=== PATIENT | male | born 1965 | race Caucasian/White ===

== ENCOUNTER 2017-02-15 05:36 | Inpatient (IN) ==
[2017-02-15] MEDS ORDERED: Naloxone 0.4 MG/ML INJ IVP PRN (11:40)
[2017-02-15] MEDS ORDERED: D5% in Water 1,000 ML IVC PRN (12:07)
[2017-02-15] MEDS ORDERED: Dextrose Gel 15 GM PO PRN ×2 (12:07)
[2017-02-15] MEDS ORDERED: *HR* Dextrose 50 % in Water (Syg) 50 ML SYRINGE IVP PRN (12:07)
[2017-02-15] MEDS: *HR* HYDROcodone/Acet 5/325 mg TABLET PO PRN ×3 (12:29→20:07)
[2017-02-15] MEDS: Furosemide 40 MG/4 ML VIAL IVP SCH (12:29)
[2017-02-15] MEDS: Insulin LISPRO 300 UNITS/3 ML VIAL SQ SCH ×3 (12:40→21:26)
--- NOTE | 2017-02-15 12:43 | Internal Med History&Physical ---
Date of Encounter: 02/15/17 Time of Encounter: 09:00 Assessment and Plan (1) Pleural effusion, left Current visit: No Status: Acute (2) Pneumonia Current visit: No Status: Acute Qualifiers: Pneumonia type: due to other aerobic Gram-negative bacteria Laterality: left Lung location: lower lobe of lung Qualified Code(s): J15.6 - Pneumonia due to other Gram-negative bacteria (3) COPD (chronic obstructive pulmonary disease) Current visit: Yes Status: Chronic Qualifiers: COPD type: chronic bronchitis Chronic bronchitis type: unspecified Qualified Code(s): J42 - Unspecified chronic bronchitis (4) Tobacco abuse Current visit: Yes Status: Acute (5) DM2 (diabetes mellitus, type 2) Current visit: Yes Status: Acute 51y/o male with hx of DM2, COPD, tobacco abuse who presents with large left pleural effusion - Will switch lasix to IV daily. Will consult pulm to evaluate for thoracentesis with analysis of fluid to rule out malignancy - Will start of Rocephin and zithromax emperically for possible masked infiltrates. - Will place on Duonebs and supplement oxygen. - counseled on tobacco cessation - Continue Accucheck with insulin coverage - Will check a Echocardiogram to evaluate cardiac structure and function. - DVT prophylaxis: SCD's - Home meds reviewed and restarted as deemed appropriate. Qualifiers: Diabetes mellitus complication status: without complication Diabetes mellitus meterman insulin use: without assisted use Qualified Code(s): E11.9 - Type 2 diabetes mellitus without complications Internal Medicine - H&P: HPI Chief complaint: Dyspnea Admitted From: Home Plans for Post Hospital Care: Home History of present illness: Mr. Paez is a 51 year old male with PMH of DM2, chronic COPD, tobacco abuse who presents as a transfer from [facility]. He reports that he has been having increased shortness of breath for the last 2 days and he would get very winded just by walking across the room. He denies fever, chills, chest pain or abdominal pain. At [facility], CXR was done which showed a Large left sided pleural effusion. He was subsequently transferred here for further management. Past Med Surg Social Fam HX - Past Medical History Medical history: COPD, diabetes, hypertension Psychiatric history: no psych history - Social History Smoking Status: Current every day smoker Packs per day: 1 ppd Smokeless Tobacco Status: No Alcohol use: none Drug use: none - Family History Mother Living Status: Age at : 42 Cause of : Cancer (Ovarian) Internal Medicine - H&P: Meds Albuterol Sulfate [Ventolin Hfa] 18 gm IH Q4HR PRN 12/25/16 [History] Aripiprazole [Abilify] 10 mg PO DAILY 12/25/16 [History] Celecoxib [Celebrex] 200 mg PO BID 12/25/16 [History] Escitalopram [Lexapro] 20 mg PO DAILY 12/25/16 [History] Furosemide [Lasix] 20 mg PO DAILY 12/25/16 [History] Gabapentin [Neurontin] 800 mg PO TID 12/25/16 [History] Glimepiride [Amaryl] 2 mg PO DAILY 12/25/16 [History] Lisinopril [Zestril] 20 mg PO DAILY 12/25/16 [History] Potassium Chloride [Klor-Con 10] 10 meq PO BID 12/25/16 [History] metFORMIN [Glucophage] 500 mg PO BIDWM 12/25/16 [History] 3 Allergy/AdvReac Type Severity Reaction Status Date / Time No Known Allergies Allergy Verified 02/15/17 03:53 All Systems PM: A 10-system review of systems was performed and is negative for pertinent findings except as documented above in the HPI. - Constitutional Constitutional: no chills, no fever(s), no night sweats - EENT Eyes: no change in vision, no discharge, no pain, no photophobia Ears: no ear discharge, no ear pain, no tinnitus Nose, mouth and throat: no dysphagia, no nasal discharge, no neck pain, no sore throat - Cardiovascular Cardiovascular ROS IM: no chest pain, no diaphoresis, no dyspnea, no lightheadedness, no palpitations, no syncope - Respiratory Respiratory: dyspnea, no cough, no wheezing, no excessive phlegm production - Gastrointestinal Gastrointestinal: no abdominal pain, no diarrhea, no hematemesis, no hematochezia, no melena, no nausea, no vomiting - Musculoskeletal Musculoskeletal ROS IM: no numbness, no tingling - Integumentary Integumentary IM: no rash, no unusual bruising - Neurological Neurological ROS: no confusion, no convulsions, no focal weakness, no numbness, no tingling, no tremor(s) - Hematologic/Lymphatic Hematologic/Lymphatic: no easy bruising - Constitutional Vitals: Temp Pulse Resp BP Pulse Ox 98.5 F 100 16 134/81 100 02/15/17 11:45 02/15/17 11:45 02/15/17 11:45 02/15/17 11:45 02/15/17 11:45 General appearance: Present: A&O X 3 - Head Head exam: Present: atraumatic, normocephalic - Eye Eye exam: Present: PERRL, conjuntiva pink, sclera anicteric Pupils: Present: PERRL - Neck Neck exam general surgery: Present: supple, trachea midline. Absent: lymphadenopathy - Respiratory Respiratory exam: Present: decreased breath sounds (left side greater than right.), rales, rhonchi. Absent: accessory muscle use, wheezes - Cardiovascular Cardiovascular exam: Present: RRR, +S1, +S2. Absent: diastolic murmur, gallop, rubs, systolic murmur - GI/Abdominal GI/Abdominal exam: Present: normal bowel sounds, soft, no peritoneal signs. Absent: distended, tenderness - Extremities Exam Extremities exam: Present: warm, radial pulses palpable and symmetrical. Absent : calf tenderness, cyanotic, pedal edema - Neurological Exam Neurological exam: Present: CN II-XII intact, oriented X3, no focal deficits. Absent: pronater drift, facial droop, speech deficit - Skin Skin exam: Present: dry, intact
--- NOTE | 2017-02-15 13:50 | Pulmonology Consult Note ---
<Twila Alvarado - Last Filed: 02/15/17 15:52> Date of Encounter: 02/15/17 Time of Encounter: 13:30 Assessment and Plan (1) Pleural effusion, left Current Visit: No Status: Acute - CXR found large left pleural effusion with adjacent atelectasis versus pneumonia. - Differential include parapneumonic (given current sepsis picture), malignancy (given significant smoking history), CHF. - Challenging to differentiate lung tissue from pleural effusion using bedside US. Will obtain CT chest without contrast as further work-up for now. - Echocardiogram ordered per primary team. - Possible US-guided thoracentesis tomorrow if CT chest confirms adequate pleural effusion. And plan to send pleural fluid for further studies including gram stain/culture, pH, cell count with diff, glucose. (2) Sepsis Current Visit: Yes Status: Acute - 3 SIRS criteria (tachycardia, tachypnea and leukocytosis) on initial presentation with lactic acid 1.6. - Patient had received 1L of NS in ED. - Blood cultures pending. - Will obtain sputum culture if possible. - Continue IV ceftriaxone and azithromycin. Qualifiers: Sepsis type: sepsis due to unspecified organism Qualified Code(s): A41.9 - Sepsis, unspecified organism (3) Pneumonia Current Visit: No Status: Acute - With noted leukocytosis (WBC 16.2) and CXR showed large left pleural effusion with adjacent atelectasis versus pneumonia. - Will obtain sputum culture if possible. - Continue IV ceftriaxone and azithromycin. Further de-escalation based on clinical picture and culture result. Qualifiers: Pneumonia type: due to other aerobic Gram-negative bacteria Laterality: left Lung location: lower lobe of lung Qualified Code(s): J15.6 - Pneumonia due to other Gram-negative bacteria (4) COPD (chronic obstructive pulmonary disease) Current Visit: Yes Status: Chronic - Continue bronchodilators. Qualifiers: COPD type: chronic bronchitis Chronic bronchitis type: unspecified Qualified Code(s): J42 - Unspecified chronic bronchitis (5) Tobacco abuse Current Visit: Yes Status: Acute - Smoking cessation counseling. - Start nicotine patch. History of Present Illness Consult date: 02/15/17 Requesting physician: Brain Guillory Reason for consult: pleural effusion (Left) Chief complaint: Shortness of breath History of present illness: Mr. Paez is a 51 year-old male with PMH of COPD (not on home oxygen), DM and HTN who presented to [place] ED with complaint of worsening difficulty breathing for 2 weeks. Patient was noted to have tachycardia, tachypnea and leukocytosis in ED with CXR showed large left pleural effusion with adjacent atelectasis versus pneumonia. Patient was admitted to [facility] on 02/15/17 for left pleural effusion and pneumonia and started on IV ceftriaxone and azithromycin. Pulmonolgy is consulted regarding further evaluation and management of left pleural effusion. Patient was seen and examined this afternoon. Patient reports worsening dyspnea for 2 weeks and it's aggravated by exertion and lying flat. Bronchodilator does not help. Patient also reports having constant sharp left-side back pain radiating from his kidney to shoulder. It's aggravated by cough or deep breath. Other associated symptoms include subjective fever, wheezes, productive cough with clear sputum and weight loss of 20 lb in past 2 weeks which patient believes it's secondary to poor appetite. Patient admits active smoking but reports decrease from 1 pack daily to 1/2 pack daily due to his illness. Patient denies known recent sick contact. Past Med Surg Social Fam HX - Past Medical History Medical history: COPD, diabetes, hypertension Psychiatric history: no psych history - Social History Smoking Status: Current every day smoker Packs per day: 1 ppd Smokeless Tobacco Status: No Alcohol use: none Drug use: none - Family History Mother Living Status: Age at : 42 Cause of : Cancer (Ovarian) Medications and Allergies Albuterol Sulfate [Ventolin Hfa] 18 gm IH Q4HR PRN 12/25/16 [History] Aripiprazole [Abilify] 10 mg PO DAILY 12/25/16 [History] Celecoxib [Celebrex] 200 mg PO BID 12/25/16 [History] Escitalopram [Lexapro] 20 mg PO DAILY 12/25/16 [History] Furosemide [Lasix] 20 mg PO DAILY 12/25/16 [History] Gabapentin [Neurontin] 800 mg PO TID 12/25/16 [History] Glimepiride [Amaryl] 2 mg PO DAILY 12/25/16 [History] Lisinopril [Zestril] 20 mg PO DAILY 12/25/16 [History] Potassium Chloride [Klor-Con 10] 10 meq PO BID 12/25/16 [History] metFORMIN [Glucophage] 500 mg PO BIDWM 12/25/16 [History] 3 Allergy/AdvReac Type Severity Reaction Status Date / Time No Known Allergies Allergy Verified 02/15/17 03:53 All Systems: A 10-system review of systems was performed and is negative for pertinent findings except as documented above in the HPI. - Constitutional Constitutional: fever(s), snoring, weight loss (20 lbs over past 2 weeks) - EENT Eyes: no loss of peripheral vision Ears: no decreased hearing Nose, mouth and throat: nasal discharge (occasional) - Cardiovascular Cardiovascular: lightheadedness, no chest pain, no syncope - Respiratory Respiratory: as per HPI, cough, dyspnea, dyspnea on exertion, wheezing, no hemoptysis - Gastrointestinal Gastrointestinal: nausea, no abdominal pain, no diarrhea, no hematochezia, no melena, no vomiting - Genitourinary Genitourinary: no difficulty urinating, no dysuria, no hematuria - Musculoskeletal Musculoskeletal: no arthralgias, no myalgias - Integumentary Integumentary: no erythema, no rash - Neurological Neurological: no focal weakness, no numbness, no tingling - Hematologic/Lymphatic Hematologic/Lymphatic: no easy bleeding, no easy bruising Physical Examination Vital Signs: Vital Signs, Last 4 Hours Temp Pulse Resp BP Pulse Ox 02/15/17 11:45 98.5 F 100 16 134/81 100 General appearance: no acute distress, alert Eyes: nonicteric ENT: oropharynx moist Mallampati (class): 4 Neck: supple Effort: normal Inspection: normal Auscultation: left: diminished breath sounds (Left base), bilateral: wheezes Cardiovascular: regular rate and rhythm Gastrointestinal: normoactive bowel sounds, soft, non-tender Integumentary: normal Extremities: no cyanosis, edema (Mild) Musculoskeletal: no deformities normal mental status, non-focal exam mood appropriate, affect normal Results - Laboratory Findings Abnormal lab findings: Abnormal lab results POC Glucose 287 (58-89) H 02/15/17 08:19 - Diagnostic Findings Chest x-ray: report reviewed, image reviewed - Clinical Findings Intake & Output: Intake & Output 02/14/17 02/15/17 02/15/17 23:59 07:59 15:59 Intake Total 400 / 400 Output Total 400 / 400 Balance 0 / 0 Weight 153 kg Consult Discharge Plan - Plan Referrals: Alondra Kign, ELECTRONIC COMMERCE SPECIALIST [Primary Care Provider] - <Brennon Allen - Last Filed: 02/15/17 17:25> Date of Encounter: 02/15/17 All Systems: A 10-system review of systems was performed and is negative for pertinent findings except as documented above in the HPI. Physical Examination Vital Signs: Vital Signs, Last 4 Hours Temp Pulse Resp BP Pulse Ox 02/15/17 16:08 16 93 02/15/17 15:56 98.5 F 107 15 128/82 95 Results - Laboratory Findings PT/INR, D-dimer PT 16.1 Seconds (9.4-12.1) H 02/15/17 14:06 Abnormal lab findings: Abnormal lab results PT 16.1 Seconds (9.4-12.1) H 02/15/17 14:06 POC Glucose 287 (58-89) H 02/15/17 08:19 - Clinical Findings Intake & Output: Intake & Output 02/15/17 02/15/17 02/15/17 07:59 15:59 23:59 Intake Total 1640 / 1640 Output Total 1525 / 1525 Balance 115 / 115 Weight 153 kg - Attending Attestation I examined this patient and my medical decision-making was reviewed with the Resident Physician. I agree with the documented findings, disposition and treatment plan as described except to the extent set forth below. Patient seen and examined. Labs, radiology, chart personally reviewed. 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 Patient has pleural effusion in the left side on the chest x-ray and did bedside ultrasound with difficulty mainly because of the body habitus, however I did not see a large effusion and since patient has risk factor mainly tobacco we will check CT chest to make sure there is no underlying pathology causing this pleural effusion. I also suspect patient has COPD from smoking and bronchodilators is reasonable and treating for pneumonia as well. Patient possibly has obstructive sleep apnea and he will need outpatient workup. Cardiovascular: 3 with echocardiogram. Thank you very much for consultation and we will have further recommendations based on the result of the CAT scan.
[2017-02-15] MEDS: cefTRIAXone 1,000 MG in Water for inj. (sterile) 10 ML IVP SCH (15:03)
[2017-02-15] MEDS: Gabapentin 400 MG CAPSULE PO SCH ×2 (15:03→20:07)
[2017-02-15] MEDS: Azithromycin 500 MG in D5% in Water 250 ML IVPB SCH (15:04)
[2017-02-15 15:19] LABS: INR 1.5; Prothrombin Time 16.1 Seconds (9.4-12.1)
[2017-02-15 15:22] LABS: Activated Partial Thrombo Time 27.4 Seconds (26.0-36.0)
[2017-02-15] MEDS: Ipratropium/Albuterol Neb 3 ML IH SCH ×3 (16:08→20:55)
[2017-02-15] MEDS: Nicotine 14 MG PATCH.TD24 TD SCH (16:48)
[2017-02-15] MEDS ORDERED: Perflutren Lipid Microsphere 1.3 ML in 0.9 % Sodium Chloride 8.7 ML IVP ONE (18:48)
[2017-02-15] MEDS: Ibuprofen 400 MG TABLET PO PRN (22:23)
[2017-02-16] MEDS: Ipratropium/Albuterol Neb 3 ML IH SCH ×7 (00:14→23:54)
[2017-02-16] MEDS: *HR* HYDROcodone/Acet 5/325 mg TABLET PO PRN ×5 (02:23→21:43)
[2017-02-16 04:08] LABS: Basophils # 0.1 K/mcL (0.0-0.2); Basophils % 0.4 %; Eosinophils # 0.1 K/mcL (0.0-0.6); Eosinophils % 0.7 %; Hematocrit 37.7 % (37.5-50.1); Hemoglobin 11.8 g/dL (12.9-16.9); Immature Granulocytes % 0.9 % (0-4); Lymphocytes # 1.2 K/mcL (0.6-4.6); Lymphocytes % 9.5 %; Mean Corpuscular HGB Conc 31.3 g/dL (31.6-35.5); Mean Corpuscular Hemoglobin 27.6 pg (28.0-33.3); Mean Corpuscular Volume 88.1 fL (83.0-100.0); Mean Platelet Volume 10.2 fL (9.4-12.4); Monocytes # 1.1 K/mcL (0.0-1.3); Monocytes % 8.2 %; Neutrophils # 10.3 K/mcL (1.6-8.9); Platelet Count 441 K/mcL (140-400); Red Blood Count 4.28 M/mcL (4.19-5.50); Red Cell Distribution Width 15.4 % (11.5-14.5); Segmented Neutrophils % 80.3 %
[2017-02-16 04:26] LABS: BUN/Creatinine Ratio 9 (6-26); Blood Urea Nitrogen 7 mg/dL (8-26); Calcium 8.6 mg/dL (8.6-10.8); Carbon Dioxide 31 mEq/L (19-29); Chloride 90 mEq/L (98-109); Glucose 308 mg/dL (70-99); Magnesium 1.6 mg/dL (1.6-2.6); Osmolality,Calculated 282 (280-300); Phosphorous 2.9 mg/dL (2.3-4.7); Potassium 3.2 mEq/L (3.5-4.5); Sodium 131 mEq/L (136-145); eGFR For African Americans > 60 (> 60); eGFR For Non-African Americans > 60 (> 60)
[2017-02-16 08:19] LABS: Alanine Aminotransferase 15 Units/L (0-55); Albumin/Globulin Ratio 0.3 (1.1-2.2); Alkaline Phosphatase 123 Units/L (38-126); Aspartate Amino Transferase 10 Units/L (5-34); Bilirubin,Direct 0.2 mg/dL (0.0-0.5); Bilirubin,Indirect 0.2 mg/dL (0.0-1.2); Bilirubin,Total 0.4 mg/dL (0.2-1.2); Globulin 5.1 g/dL (2.4-3.5); Total Protein 6.7 g/dL (6.0-8.3)
[2017-02-16 08:20] LABS: Albumin 1.6 g/dL (3.5-5.0)
[2017-02-16] MEDS ORDERED: Furosemide 20 MG TABLET PO SCH (09:00)
--- NOTE | 2017-02-16 09:08 | Pulmonology Progress Note ---
<Twila Alvarado - Last Filed: 02/16/17 10:01> Date of Encounter: 02/16/17 Time of Encounter: 09:00 Assessment and Plan (1) Pleural effusion, left Current Visit: No Status: Acute - CXR found large left pleural effusion with adjacent atelectasis versus pneumonia. - Differential include parapneumonic (given current sepsis picture), malignancy (given significant smoking history), CHF. - Challenging to differentiate lung tissue from pleural effusion using bedside US. Will obtain CT chest without contrast as further work-up for now. - CT chest found large posteriorly loculated left pleural effusion with associated dependent left lung consolidation, mostly of the left lower lobe, atelectasis and/or pneumonia. - Echocardiogram ordered per primary team. - IR consulted for thoracentesis/possible chest tube placement. Pleural fluid for further studies including gram stain/culture, pH, cell count with diff, glucose, total protein, LDH also ordered. (2) Sepsis Current Visit: Yes Status: Acute - 3 SIRS criteria (tachycardia, tachypnea and leukocytosis) on initial presentation with lactic acid 1.6. - Patient had received 1L of NS in ED. - Rapid influenza screen negative. - Blood cultures pending. - Sputum gram stain found few GPC and culture pending. - Continue IV ceftriaxone (since 02/15) and azithromycin (since 02/15). Further de-escalation based on clinical picture and culture result. Qualifiers: Sepsis type: sepsis due to unspecified organism Qualified Code(s): A41.9 - Sepsis, unspecified organism (3) Pneumonia Current Visit: No Status: Suspected - With noted leukocytosis (WBC 16.2) on admission and CXR showed large left pleural effusion with adjacent atelectasis versus pneumonia. - Sputum gram stain found few GPC and culture pending. - Continue IV ceftriaxone (since 02/15) and azithromycin (since 02/15). Further de-escalation based on clinical picture and culture result. Qualifiers: Pneumonia type: due to other aerobic Gram-negative bacteria Laterality: left Lung location: lower lobe of lung Qualified Code(s): J15.6 - Pneumonia due to other Gram-negative bacteria (4) COPD (chronic obstructive pulmonary disease) Current Visit: Yes Status: Chronic - Continue bronchodilators. Qualifiers: COPD type: chronic bronchitis Chronic bronchitis type: unspecified Qualified Code(s): J42 - Unspecified chronic bronchitis (5) Tobacco abuse Current Visit: Yes Status: Acute - Smoking cessation counseling. - Continue nicotine patch. Subjective Principal diagnosis: Left pleural effusion Interval history: Patient was seen and examined this morning. Patient reports breathing and cough better compared to yesterday. Patient still has some left-sided back pain but pain medication does help to alleviate the pain. Patient denies fever, chills, nausea, vomiting, chest pain, abdominal pain. Objective PUL Vital signs: Last Vital Signs Temp 97.5 F L 02/16/17 06:00 Pulse 98 02/16/17 06:00 Resp 18 02/16/17 07:50 BP 122/75 02/16/17 06:00 Pulse Ox 95 02/16/17 07:50 General appearance: no acute distress, alert Eyes: nonicteric ENT: oropharynx moist Mallampati (class): 4 Neck: supple Effort: normal Auscultation: left: diminished breath sounds, bilateral: wheezes Cardiovascular: regular rate and rhythm Gastrointestinal: normoactive bowel sounds, soft, non-tender Integumentary: normal Extremities: no cyanosis, no edema Musculoskeletal: no deformities normal mental status, non-focal exam mood appropriate, affect normal Results - Laboratory Findings CBC and BMP: 02/16/17 03:19 02/16/17 03:19 PT/INR, D-dimer PT 16.1 Seconds (9.4-12.1) H 02/15/17 14:06 Abnormal lab findings: Abnormal lab results WBC 12.9 K/mcL (4.3-11.1) H 02/16/17 03:19 Hgb 11.8 g/dL (12.9-16.9) L 02/16/17 03:19 MCH 27.6 pg (28.0-33.3) L 02/16/17 03:19 MCHC 31.3 g/dL (31.6-35.5) L 02/16/17 03:19 RDW 15.4 % (11.5-14.5) H 02/16/17 03:19 Plt Count 441 K/mcL (140-400) H 02/16/17 03:19 Neutrophils # 10.3 K/mcL (1.6-8.9) H 02/16/17 03:19 PT 16.1 Seconds (9.4-12.1) H 02/15/17 14:06 Sodium 131 mEq/L (136-145) L 02/16/17 03:19 Potassium 3.2 mEq/L (3.5-4.5) L 02/16/17 03:19 Chloride 90 mEq/L (98-109) L 02/16/17 03:19 Carbon Dioxide 31 mEq/L (19-29) H 02/16/17 03:19 BUN 7 mg/dL (8-26) L 02/16/17 03:19 Glucose 308 mg/dL (70-99) H 02/16/17 03:19 POC Glucose 287 (58-89) H 02/15/17 08:19 Albumin 1.6 g/dL (3.5-5.0) L 02/16/17 03:19 Globulin 5.1 g/dL (2.4-3.5) H 02/16/17 03:19 Albumin/Globulin Ratio 0.3 (1.1-2.2) L 02/16/17 03:19 - Microbiology Findings Microbiology Findings: Microbiology, Last 48 Hours 02/15/17 21:00 Sputum Culture - Preliminary Sputum - Diagnostic Findings CT scan - chest: report reviewed, image reviewed - Clinical Findings Intake & Output: Intake & Output 02/15/17 02/16/17 02/16/17 23:59 07:59 15:59 Intake Total 1740 / 1740 1500 / 1500 Output Total 500 / 500 1050 / 1050 Balance 1240 / 1240 450 / 450 Weight 153.2 kg Consult Discharge Plan - Plan Referrals: Alondra King, HUMAN RESOURCES BENEFITS SPECIALIST [Primary Care Provider] - <Brennon Allen - Last Filed: 02/16/17 16:21> Date of Encounter: 02/16/17 Objective PUL Vital signs: Last Vital Signs Temp 97.5 F L 02/16/17 15:54 Pulse 93 02/16/17 15:54 Resp 18 02/16/17 15:54 BP 107/68 02/16/17 15:54 Pulse Ox 97 02/16/17 15:54 Results - Laboratory Findings CBC and BMP: 02/16/17 03:19 02/16/17 03:19 PT/INR, D-dimer PT 16.1 Seconds (9.4-12.1) H 02/15/17 14:06 Abnormal lab findings: Abnormal lab results WBC 12.9 K/mcL (4.3-11.1) H 02/16/17 03:19 Hgb 11.8 g/dL (12.9-16.9) L 02/16/17 03:19 MCH 27.6 pg (28.0-33.3) L 02/16/17 03:19 MCHC 31.3 g/dL (31.6-35.5) L 02/16/17 03:19 RDW 15.4 % (11.5-14.5) H 02/16/17 03:19 Plt Count 441 K/mcL (140-400) H 02/16/17 03:19 Neutrophils # 10.3 K/mcL (1.6-8.9) H 02/16/17 03:19 PT 16.1 Seconds (9.4-12.1) H 02/15/17 14:06 Sodium 131 mEq/L (136-145) L 02/16/17 03:19 Potassium 3.2 mEq/L (3.5-4.5) L 02/16/17 03:19 Chloride 90 mEq/L (98-109) L 02/16/17 03:19 Carbon Dioxide 31 mEq/L (19-29) H 02/16/17 03:19 BUN 7 mg/dL (8-26) L 02/16/17 03:19 Glucose 308 mg/dL (70-99) H 02/16/17 03:19 POC Glucose 269 (58-89) H 02/16/17 06:34 Albumin 1.6 g/dL (3.5-5.0) L 02/16/17 03:19 Globulin 5.1 g/dL (2.4-3.5) H 02/16/17 03:19 Albumin/Globulin Ratio 0.3 (1.1-2.2) L 02/16/17 03:19 Pleural Appearance Cloudy (Clear) A 02/16/17 11:00 - Microbiology Findings Microbiology Findings: Microbiology, Last 48 Hours 02/16/17 11:00 Body Fluid Culture - Preliminary Pleural Fluid 02/15/17 21:00 Sputum Culture - Preliminary Sputum - Clinical Findings Intake & Output: Intake & Output 02/16/17 02/16/17 02/16/17 07:59 15:59 23:59 Intake Total 1500 / 1500 1580 / 1580 Output Total 1050 / 1050 2024 / 2024 Balance 450 / 450 -445 / -445 Weight 153.2 kg - Attending Attestation I examined this patient and my medical decision-making was reviewed with the Resident Physician. I agree with the documented findings, disposition and treatment plan as described except to the extent set forth below. Patient seen and examined. Labs, radiology, chart personally reviewed. 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 He should not is feeling better today however his CAT scan is concerning with loculated effusion and differential diagnosis would be infectious versus noninfectious etiologies for that reason discussed with the patient that I recommend draining and interventional radiologist was consulted for draining. Continue current antibiotics. Cardiovascular: stable
[2017-02-16] MEDS ORDERED: *HR* Midazolam HCl 2 MG/2 ML VIAL IVP ONE (09:45)
[2017-02-16] MEDS: *HR* Glimepiride 2 MG TABLET PO SCH (09:45)
[2017-02-16] MEDS: Lisinopril 20 MG TABLET PO SCH (09:45)
[2017-02-16] MEDS: Gabapentin 400 MG CAPSULE PO SCH ×3 (09:45→21:03)
[2017-02-16] MEDS: Nicotine 14 MG PATCH.TD24 TD SCH (09:46)
[2017-02-16] MEDS ORDERED: *HR* FentaNYL (PF) 100 MCG/2 ML VIAL IVP ONE (09:46)
[2017-02-16] MEDS: Furosemide 40 MG/4 ML VIAL IVP SCH (09:46)
[2017-02-16] MEDS: ARIPiprazole 10 MG TABLET PO SCH (09:46)
[2017-02-16] MEDS: cefTRIAXone 1,000 MG in Water for inj. (sterile) 10 ML IVP SCH (09:47)
[2017-02-16] MEDS: Insulin LISPRO 300 UNITS/3 ML VIAL SQ SCH ×4 (09:52→21:04)
[2017-02-16] MEDS: Ibuprofen 400 MG TABLET PO PRN (09:53)
[2017-02-16] MEDS ORDERED: 0.9 % Sodium Chloride 500 ML ONE (10:29)
--- NOTE | 2017-02-16 11:08 | IR Procedure Note ---
Date of procedure: 02/16/17 Consent Obtained: Written consent Timeout: Correct patient and procedure verified, Correct site verified, Time out performed, Skin prep completed Local anesthetic: Lidocaine 1% Indications: Left loculated pleft pleural effusion Procedure Performed: Left chest tube placement Results/Findings: 12F left chest tube, 1200ml purulent fluid removed Complications: None; Tolerated procedure well (Monitor on floor)
[2017-02-16] MEDS: Azithromycin 500 MG in D5% in Water 250 ML IVPB SCH (12:41)
[2017-02-16 12:44] LABS: Glucose,Pleural Fluid 32 mg/dL (No Ref Range); LDH,Pleural Fluid > 3325 Units/L (No Ref Range)
[2017-02-16] MEDS: Insulin DETEMIR 100 UNIT/ML X5UNITS SQ SCH (14:34)
[2017-02-16 15:13] LABS: Appearance of Pleural Fl Cloudy (Clear)
[2017-02-16] MEDS: *HR* Heparin 5,000 UNIT/ML VIAL SQ SCH (17:22)
--- NOTE | 2017-02-16 17:31 | Internal Med Progress Note ---
Date of Encounter: 02/16/17 Time of Encounter: 15:00 - Assessment and plan (1) Pleural effusion, left Current Visit: No Status: Acute (2) Pneumonia Current Visit: No Status: Suspected Qualifiers: Pneumonia type: due to other aerobic Gram-negative bacteria Laterality: left Lung location: lower lobe of lung Qualified Code(s): J15.6 - Pneumonia due to other Gram-negative bacteria (3) COPD (chronic obstructive pulmonary disease) Current Visit: Yes Status: Chronic Qualifiers: COPD type: chronic bronchitis Chronic bronchitis type: unspecified Qualified Code(s): J42 - Unspecified chronic bronchitis (4) Tobacco abuse Current Visit: Yes Status: Acute (5) DM2 (diabetes mellitus, type 2) Current Visit: Yes Status: Acute Assessment and plan: 51Y/O MALE WHO PRESENTED WITH LARGE LEFT PLEURAL EFFUSION. PT IS S/P LEFT SIDE CHEST TUBE PLACEMENT, REMAINS STABLE, FOLLOW RESULTS OF FLUID ANALYSIS, PULM FOLLOWING. WILL CONTINUE SUPPLEMENTAL OXYGEN NEEDED. CONTINUE ACCUCHECK WITH INSULIN COVERAGE. CONTINUE IV ABX FOR PNEUMONIA, REPLACE ELECTROLYTES. Qualifiers: Diabetes mellitus complication status: without complication Diabetes mellitus half-way insulin use: without director long term care use Qualified Code(s): E11.9 - Type 2 diabetes mellitus without complications - Subjective Interval history: SAYS BREATHING MUCH BETTER - Constitutional Vitals: Temp Pulse Resp BP Pulse Ox 97.5 F L 93 18 107/68 97 02/16/17 15:54 02/16/17 15:54 02/16/17 15:54 02/16/17 15:54 02/16/17 15:54 General appearance: Present: A&O X 3 - Head Head exam: Present: atraumatic, normocephalic - Eye Eye exam: Present: PERRL, conjuntiva pink, sclera anicteric Pupils: Present: PERRL - Neck Neck exam general surgery: Present: supple, trachea midline. Absent: lymphadenopathy - Respiratory Respiratory exam: Present: decreased breath sounds. Absent: accessory muscle use, rales, rhonchi, wheezes Additional comments: LEFT SIDE CHEST TUBE PRESENT. - Cardiovascular Cardiovascular exam: Present: RRR, +S1, +S2. Absent: diastolic murmur, gallop, rubs, systolic murmur - GI/Abdominal GI/Abdominal exam: Present: normal bowel sounds, soft, no peritoneal signs. Absent: distended, tenderness - Extremities Exam Extremities exam: Present: warm, radial pulses palpable and symmetrical. Absent : calf tenderness, cyanotic, pedal edema - Neurological Exam Neurological exam: Present: CN II-XII intact, oriented X3, no focal deficits. Absent: pronater drift, facial droop, speech deficit - Skin Skin exam: Present: dry, intact Internal Medicine: Result - Labs CBC & Chem 7: 02/16/17 03:19 02/16/17 03:19 Labs: Short CBC 02/16/17 Range/Units 03:19 WBC 12.9 H (4.3-11.1) K/mcL Hgb 11.8 L (12.9-16.9) g/dL Hct 37.7 (37.5-50.1) % Plt Count 441 H (140-400) K/mcL Neutrophils # 10.3 H (1.6-8.9) K/mcL BMP 02/16/17 03:19 Sodium 131 L Potassium 3.2 L Chloride 90 L Carbon Dioxide 31 H BUN 7 L Creatinine 0.80 Glucose 308 H Calcium 8.6 Liver Function 02/16/17 Range/Units 03:19 Total Bilirubin 0.4 (0.2-1.2) mg/dL Direct Bilirubin 0.2 (0.0-0.5) mg/dL AST 10 (5-34) Units/L ALT 15 (0-55) Units/L Alkaline Phosphatase 123 (38-126) Units/L Albumin 1.6 L (3.5-5.0) g/dL - ABG Interpretation ABG results: PT/INR, D-dimer PT 16.1 Seconds (9.4-12.1) H 02/15/17 14:06 - Impressions Impressions Echocardiogram 02/15/17 12:12 Impressions: LVEF 70%. Mild left ventricular diastolic dysfunction. Definity echo contrast was used. RV is not well evaluated. Mild mitral regurgitation. No pulmonary hypertension. Pleural effusion is not well visualized on this technically challenging study. Left Ventricular Wall Motion: Rest Echo Findings All wall segments showed normal motion. Findings: Study Quality * Technically challenging due to body habitus. Patient also supine for exam. ECG Findings * Sinus tachycardia. Left Ventricle * Mild left ventricular diastolic dysfunction. * LVEF 70%. * Definity echo contrast was used. * Suboptimal PLAX measurements - visually, LV size and wall thickness appear normal. Right Ventricle * RV is not well evaluated. Left Atrium * Normal left atrial size. Right Atrium * Right atrium is not well visualized. Aortic Valve * No aortic regurgitation. * No aortic stenosis. * Aortic valve not well visualized. Mitral Valve * Mitral valve not well visualized. * No mitral stenosis. * Mild mitral regurgitation. Tricuspid Valve * Tricuspid valve not well visualized. * Trace tricuspid regurgitation. * Estimated RA pressure is 3 mmHg. * Estimated RVSP is 24 mmHg. * No pulmonary hypertension. Pulmonic Valve * Pulmonic valve is not well visualized. * No pulmonic stenosis. * No pulmonic regurgitation. Pulmonary Artery * Pulmonary artery not well visualized. Aorta * Normally sized aortic root. * Ascending aorta is not well visualized. Pericardium * There is no pericardial effusion present. Interatrial Septum * Interatrial septum not well evaluated. IVC * The IVC is not dilated. Chest CT 02/15/17 15:51 IMPRESSION: Large posteriorly loculated left pleural effusion with associated dependent left lung consolidation, mostly of the left lower lobe, atelectasis and/or pneumonia. Follow-up to resolution is recommended. Left hilar adenopathy is likely reactive. Again, follow-up is recommended. Several scattered bilateral pleural and parenchymal nodular densities measuring up to 6 mm, probably postinflammatory. Comparison with prior studies would be helpful if available. Otherwise, see below follow-up. RECOMMENDATIONS: Fleischner Society guidelines for follow-up and management of incidentally detected pulmonary nodules: Single Solid Nodule: Multiple Solid Nodules: Nodule size equals 6-8 mm In a low-risk patient, CT at 3-6 months, then consider CT at 18-24 months. In a high-risk patient, CT at 3-6 months, then CT at 18-24 months. - Low risk patients include individuals with minimal or absent history of smoking and other known risk factors. - High risk patients include individuals with a history or smoking or known risk factors. Radiology 2017 http://pubs.rsna.org/doi/full/10.1148/radiol.[email or web address] D/ / Maylin Daley Cha, MD / Maylin Daley Cha, MD Interpreting Provider: Maylin Daley Cha, MD Needle Aspiration CT 02/16/17 00:00 IMPRESSION: 1. CT guided left chest tube placement as discussed above. D/ / Tylor Gaitan MD / Tylor Gaitan MD Interpreting Provider: Tylor Gaitan MD Consult Discharge Plan - Plan Referrals: Alondra King, WATER QUALITY SPECIALIST [Primary Care Provider] -
[2017-02-17] MEDS: *HR* HYDROcodone/Acet 5/325 mg TABLET PO PRN ×5 (03:46→21:11)
[2017-02-17] MEDS: Ipratropium/Albuterol Neb 3 ML IH SCH ×5 (04:04→20:55)
[2017-02-17] MEDS: *HR* Heparin 5,000 UNIT/ML VIAL SQ SCH ×2 (05:13→16:53)
[2017-02-17] MEDS: Insulin LISPRO 300 UNITS/3 ML VIAL SQ SCH ×4 (08:34→21:11)
[2017-02-17] MEDS: cefTRIAXone 1,000 MG in Water for inj. (sterile) 10 ML IVP SCH (08:35)
[2017-02-17] MEDS: Furosemide 40 MG/4 ML VIAL IVP SCH (08:37)
[2017-02-17] MEDS: Lisinopril 20 MG TABLET PO SCH (08:38)
[2017-02-17] MEDS: ARIPiprazole 10 MG TABLET PO SCH (08:38)
[2017-02-17] MEDS: Gabapentin 400 MG CAPSULE PO SCH ×3 (08:38→21:12)
[2017-02-17] MEDS: *HR* Glimepiride 2 MG TABLET PO SCH (08:38)
[2017-02-17] MEDS: Insulin DETEMIR 100 UNIT/ML X5UNITS SQ SCH (08:40)
[2017-02-17] MEDS: Nicotine 14 MG PATCH.TD24 TD SCH (08:40)
--- NOTE | 2017-02-17 09:56 | Pulmonology Progress Note ---
Date of Encounter: 02/17/17 Time of Encounter: 09:15 Assessment and Plan (1) Empyema of left pleural space Current Visit: Yes Status: Acute Based on the fluid description and patient has significant pus-looking fluid in the chamber as well as extremely elevated LDH by criteria this is an exudative pleural effusion/empyema and clinically patient is feeling better, however due to his age and loculated effusion consulted Dr. Muller from cardiothoracic for his opinion regarding decortication. Follow-up on the cultures from the pleural fluid. Continue current antibiotics. (2) COPD (chronic obstructive pulmonary disease) Current Visit: Yes Status: Chronic Continue bronchodilators. Qualifiers: COPD type: chronic bronchitis Chronic bronchitis type: unspecified Qualified Code(s): J42 - Unspecified chronic bronchitis Subjective Principal diagnosis: Left pleural effusion Interval history: Patient feels much better and he is able to take deep breath. Objective PUL Vital signs: Last Vital Signs Temp 97.8 F 02/17/17 07:25 Pulse 85 02/17/17 07:25 Resp 16 02/17/17 07:59 BP 97/62 02/17/17 07:25 Pulse Ox 98 02/17/17 07:59 General appearance: no acute distress Eyes: nonicteric ENT: oropharynx moist Neck: supple Effort: normal Auscultation: left: diminished breath sounds, other (Chest tube), right: clear Percussion: left: dull Cardiovascular: regular rate and rhythm Gastrointestinal: normoactive bowel sounds Extremities: no cyanosis normal mental status, non-focal exam mood appropriate Results - Laboratory Findings CBC and BMP: 02/16/17 03:19 02/16/17 03:19 PT/INR, D-dimer PT 16.1 Seconds (9.4-12.1) H 02/15/17 14:06 Abnormal lab findings: Abnormal lab results WBC 12.9 K/mcL (4.3-11.1) H 02/16/17 03:19 Hgb 11.8 g/dL (12.9-16.9) L 02/16/17 03:19 MCH 27.6 pg (28.0-33.3) L 02/16/17 03:19 MCHC 31.3 g/dL (31.6-35.5) L 02/16/17 03:19 RDW 15.4 % (11.5-14.5) H 02/16/17 03:19 Plt Count 441 K/mcL (140-400) H 02/16/17 03:19 Neutrophils # 10.3 K/mcL (1.6-8.9) H 02/16/17 03:19 PT 16.1 Seconds (9.4-12.1) H 02/15/17 14:06 Sodium 131 mEq/L (136-145) L 02/16/17 03:19 Potassium 3.2 mEq/L (3.5-4.5) L 02/16/17 03:19 Chloride 90 mEq/L (98-109) L 02/16/17 03:19 Carbon Dioxide 31 mEq/L (19-29) H 02/16/17 03:19 BUN 7 mg/dL (8-26) L 02/16/17 03:19 Glucose 308 mg/dL (70-99) H 02/16/17 03:19 POC Glucose 214 (58-89) H 02/16/17 19:29 Albumin 1.6 g/dL (3.5-5.0) L 02/16/17 03:19 Globulin 5.1 g/dL (2.4-3.5) H 02/16/17 03:19 Albumin/Globulin Ratio 0.3 (1.1-2.2) L 02/16/17 03:19 Pleural Appearance Cloudy (Clear) A 02/16/17 11:00 - Microbiology Findings Microbiology Findings: Microbiology, Last 48 Hours 02/15/17 21:00 Sputum Culture - Preliminary Sputum 02/16/17 11:00 Body Fluid Culture - Preliminary Pleural Fluid - Clinical Findings Intake & Output: Intake & Output 02/16/17 02/17/17 02/17/17 23:59 07:59 15:59 Intake Total 450 / 450 850 / 850 Output Total 815 / 815 760 / 760 Balance -365 / -365 90 / 90 Weight 153.4 kg Consult Discharge Plan - Plan Referrals: Alondra King, BUDGET ACCOUNTANT [Primary Care Provider] -
[2017-02-17 10:04] LABS: Alanine Aminotransferase 15 Units/L (0-55); Albumin/Globulin Ratio 0.3 (1.1-2.2); Alkaline Phosphatase 114 Units/L (38-126); Aspartate Amino Transferase 10 Units/L (5-34); BUN/Creatinine Ratio 10 (6-26); Bilirubin,Total 0.3 mg/dL (0.2-1.2); Blood Urea Nitrogen 7 mg/dL (8-26); Calcium 8.9 mg/dL (8.6-10.8); Carbon Dioxide 36 mEq/L (19-29); Chloride 86 mEq/L (98-109); Globulin 5.5 g/dL (2.4-3.5); Glucose 239 mg/dL (70-99); Osmolality,Calculated 276 (280-300); Potassium 3.3 mEq/L (3.5-4.5); Sodium 130 mEq/L (136-145); eGFR For African Americans > 60 (> 60); eGFR For Non-African Americans > 60 (> 60)
[2017-02-17 10:06] LABS: Albumin 1.5 g/dL (3.5-5.0)
[2017-02-17 10:55] LABS: Lactate Dehydrogenase 148 Units/L (159-327)
[2017-02-17] MEDS: Azithromycin 500 MG in D5% in Water 250 ML IVPB SCH (12:47)
[2017-02-17] MEDS ORDERED: Vancomycin 2,000 MG in D5% in Water 250 ML IVPB SCH (16:00)
--- NOTE | 2017-02-17 16:13 | Internal Med Progress Note ---
Date of Encounter: 02/17/17 Time of Encounter: 10:35 - Assessment and plan (1) Pneumonia Current Visit: Yes Status: Acute Assessment and plan: Patient with left-sided empyema likely related to underlying pneumonia. Pleural fluid culture growing staph aureus which is likely methicillin- resistant. Patient has now been placed on vancomycin. High risk for complications. Qualifiers: Pneumonia type: due to methicillin-resistant Staphylococcus aureus (MRSA) Laterality: left Lung location: lower lobe of lung Qualified Code(s): J15.212 - Pneumonia due to Methicillin resistant Staphylococcus aureus (2) Empyema of left pleural space Current Visit: Yes Status: Acute Assessment and plan: Fluid analysis suggests presence of exudative effusion concerning for empyema. Pleural fluid culture is growing staph aureus likely MRSA. Pulmonology following. Cardiothoracic surgery has been consulted for possible decortication. Patient has now been placed on vancomycin. Will stop ceftriaxone and azithromycin at this time. Will change Lasix to oral home dosage. (3) COPD (chronic obstructive pulmonary disease) Current Visit: Yes Status: Chronic Assessment and plan: Home bronchodilators. Not in acute exacerbation Qualifiers: COPD type: chronic bronchitis Chronic bronchitis type: unspecified Qualified Code(s): J42 - Unspecified chronic bronchitis (4) DM2 (diabetes mellitus, type 2) Current Visit: Yes Status: Chronic Assessment and plan: Uncontrolled blood sugars. Will add long-acting insulin in the morning. continue sliding scale coverage. Qualifiers: Diabetes mellitus complication status: without complication Diabetes mellitus skilled nursing insulin use: without skilled nursing use Qualified Code(s): E11.9 - Type 2 diabetes mellitus without complications (5) Sepsis Current Visit: Yes Status: Acute Qualifiers: Sepsis type: methicillin resistant Staphylococcus aureus Qualified Code(s) : A41.02 - Sepsis due to Methicillin resistant Staphylococcus aureus (6) Chronic congestive heart failure Current Visit: Yes Status: Chronic Assessment and plan: Will change Lasix back to oral dose at 20 mg per day as patient does not appear to be having acute congestive heart failure at this time Qualifiers: Congestive heart failure type: diastolic Qualified Code(s): I50.32 - Chronic diastolic (congestive) heart failure - Subjective Interval history: Patient is doing well overall. Does have some discomfort at site of chest tube insertion. Breathing is improving. Does have some cough. No fever or chills reported overnight. - Constitutional Vitals: Temp Pulse Resp BP Pulse Ox 97.8 F 85 16 97/62 92 02/17/17 07:25 02/17/17 07:25 02/17/17 15:38 02/17/17 07:25 02/17/17 15:38 General appearance: Present: cooperative, mild distress, A&O X 3, answers questions appropriately - Neck Neck exam general surgery: Present: supple, trachea midline. Absent: lymphadenopathy - Respiratory Respiratory exam: Present: prolonged expiratory phase, wheezes. Absent: accessory muscle use, rales, rhonchi Additional comments: Chest tube is in place on the left side - Cardiovascular Cardiovascular exam: Present: RRR, +S1, +S2. Absent: diastolic murmur, gallop, rubs, systolic murmur - Extremities Exam Extremities exam: Present: warm, radial pulses palpable and symmetrical. Absent : calf tenderness, cyanotic, pedal edema - Neurological Exam Neurological exam: Present: CN II-XII intact, oriented X3, no focal deficits. Absent: pronater drift, facial droop, speech deficit Internal Medicine: Result - Labs CBC & Chem 7: 02/16/17 03:19 02/17/17 09:36 Labs: BMP 02/17/17 09:36 Sodium 130 L Potassium 3.3 L Chloride 86 L Carbon Dioxide 36 H BUN 7 L Creatinine 0.73 Glucose 239 H Calcium 8.9 Liver Function 02/17/17 Range/Units 09:36 Total Bilirubin 0.3 (0.2-1.2) mg/dL AST 10 (5-34) Units/L ALT 15 (0-55) Units/L Alkaline Phosphatase 114 (38-126) Units/L Albumin 1.5 L (3.5-5.0) g/dL - ABG Interpretation ABG results: PT/INR, D-dimer PT 16.1 Seconds (9.4-12.1) H 02/15/17 14:06 Consult Discharge Plan - Plan Referrals: Alondra King, SAW CLEANER [Primary Care Provider] -
--- NOTE | 2017-02-17 16:26 | Cardiothoracic Consult Note ---
Date of Encounter: 02/17/17 Time of Encounter: 16:22 Assessment and Plan (1) Empyema of left pleural space Current Visit: Yes Status: Acute The patient is a 51-year-old type II diabetic, hypertensive man with COPD. Approximately 2 weeks ago he developed shortness of breath and dyspnea on exertion. This was followed by the rapid development of left-sided flank pain. He was evaluated at [place] emergency department and found to have a leukocytosis and a large left pleural effusion on chest x-ray. He was transferred to [facility] where he underwent thoracentesis. This removed approximately 1200 mL of white rhythm and arterial in the pulmonary culture results show a presumptive MRSA pleural empyema. The patient has had no follow-up radiological studies to evaluate the effectiveness of the thoracentesis. I will order a chest x-ray for tomorrow depending on the appearance, he may require a repeat chest CT. If the chest x-ray and/or chest CT show clearing of the empyema he may be treated with antibiotics. However, if the patient has residual loculated effusion, he will probably require a thoracotomy and decortication. The assessment and plan as outlined above was discussed with the patient and/or family members who expressed understanding and agreement. All questions were answered. - History of Present Illness Consult date: 02/17/17 Requesting physician: Brennon Allen Consult reason: Left pleural empyema Chief complaint: Shortness of breath, dyspnea on exertion, left sided flank pain History of present illness: Mr. Paez is a 51 year old type II diabetic, hypertensive man with COPD. He had done well until approximately 2 weeks ago when he began experiencing shortness of breath and dyspnea on exertion. These symptoms progressed and he then developed left sided flank pain. He denies any cough, hemoptysis, or syncope. He was evaluated to [facility] where he was found to have a leukocytosis and a chest x-ray showed a large left pleural effusion. He was transferred to [facility] for further care. The patient underwent a thoracentesis and interventional radiology with drainage of approximately 1200 mL of white purulent material. The material was sent for culture and was found to have a presumptive MRSA pleural empyema. The patient states that he feels dramatically better after the effusion was drained. He has no shortness of breath, dyspnea exertion, or left-sided flank pain. I have been asked to evaluate the patient for possible thoracotomy and decortication. Past Med Surg Social Fam HX - Past Medical History Medical history: COPD, diabetes, hypertension Psychiatric history: no psych history - Past Surgical History Surgical History: orthopedic, other (ORIF right tibial fracture) - Social History Smoking Status: Current every day smoker Packs per day: 1 ppd x 35 years Smokeless Tobacco Status: No Alcohol use: none Drug use: none Occupational status: previously employed Current living situation: Home - Independent Activity Level: Independent ambulation Recent Out of Country Travel Within the Last 8 Weeks: No Exposure or Possible Exposure to Illness During Travel: No - Family History Mother Living Status: Age at : 42 Cause of : Cancer (Ovarian) Medications and Allergies Albuterol Sulfate [Ventolin Hfa] 18 gm IH Q4HR PRN 12/25/16 [History] Aripiprazole [Abilify] 10 mg PO DAILY 12/25/16 [History] Celecoxib [Celebrex] 200 mg PO BID 12/25/16 [History] Escitalopram [Lexapro] 20 mg PO DAILY 12/25/16 [History] Furosemide [Lasix] 20 mg PO DAILY 12/25/16 [History] Gabapentin [Neurontin] 800 mg PO TID 12/25/16 [History] Glimepiride [Amaryl] 2 mg PO DAILY 12/25/16 [History] Lisinopril [Zestril] 20 mg PO DAILY 12/25/16 [History] Potassium Chloride [Klor-Con 10] 10 meq PO BID 12/25/16 [History] metFORMIN [Glucophage] 500 mg PO BIDWM 12/25/16 [History] 3 Allergy/AdvReac Type Severity Reaction Status Date / Time No Known Allergies Allergy Verified 02/15/17 03:53 All Systems Review: A 10-system review of systems was performed and is negative for pertinent findings except as documented above in the HPI. Physical Examination Vital Signs, Last 4 Hours Resp Pulse Ox 02/17/17 15:38 16 92 General: Conversant, No Apparent Distress HEENT: Atraumatic, Normocephaly, Trachea midline Neck: No JVD, Normal carotid pulses Cardiac: Reg Rate and Rhythm, Normal S1 and S2, No Murmur Lungs: Normal Breath Sounds (Right lung moseley), Decreased breath sounds (Left base) Neuro: Alert and responsive, No focal deficits noted, Motor nerves intact, Sensory nerves intact Vascular: Normal capillary refill Abdomen: Soft, Non-tender Skin: No rashes noted on visualized skin Musculoskeletal: No Chest Wall Tenderness Extremities: No Clubbing, No Cyanosis, No Edema Results 02/16/17 03:19 02/17/17 09:36 Lab Results, Last 24 hours 02/17/17 09:36 Sodium 130 L Potassium 3.3 L Chloride 86 L Carbon Dioxide 36 H BUN 7 L Creatinine 0.73 Glucose 239 H Calcium 8.9 Total Bilirubin 0.3 AST 10 ALT 15 Alkaline Phosphatase 114 Consult Discharge Plan - Plan Referrals: Alondra King, DIRECTOR EXPERIMENTAL MEDICINE [Primary Care Provider] -
[2017-02-17] MEDS: Vancomycin 2,000 MG in D5% in Water 500 ML IVPB SCH (17:59)
[2017-02-17] MEDS ORDERED: Insulin DETEMIR 100 UNIT/ML X5UNITS SQ SCH (21:00)
[2017-02-18] MEDS: Ipratropium/Albuterol Neb 3 ML IH SCH ×8 (00:21→23:02)
[2017-02-18] MEDS: *HR* HYDROcodone/Acet 5/325 mg TABLET PO PRN ×5 (00:57→21:40)
[2017-02-18 04:58] LABS: Basophils % 0.5 %; Eosinophils # 0.2 K/mcL (0.0-0.6); Eosinophils % 2.7 %; Hematocrit 37.7 % (37.5-50.1); Hemoglobin 11.7 g/dL (12.9-16.9); Lymphocytes # 1.1 K/mcL (0.6-4.6); Lymphocytes % 14.3 %; Mean Corpuscular Hemoglobin 27.6 pg (28.0-33.3); Mean Corpuscular Volume 88.9 fL (83.0-100.0); Mean Platelet Volume 10.2 fL (9.4-12.4); Monocytes # 0.5 K/mcL (0.0-1.3); Monocytes % 6.2 %; Platelet Count 453 K/mcL (140-400); Red Blood Count 4.24 M/mcL (4.19-5.50); Red Cell Distribution Width 15.1 % (11.5-14.5); Segmented Neutrophils % 75.3 %
[2017-02-18] MEDS: *HR* Heparin 5,000 UNIT/ML VIAL SQ SCH ×2 (04:58→16:39)
[2017-02-18] MEDS: Vancomycin 2,000 MG in D5% in Water 500 ML IVPB SCH (04:59)
[2017-02-18 05:04] LABS: BUN/Creatinine Ratio 14 (6-26); Blood Urea Nitrogen 10 mg/dL (8-26); Calcium 8.9 mg/dL (8.6-10.8); Carbon Dioxide 35 mEq/L (19-29); Chloride 88 mEq/L (98-109); Glucose 241 mg/dL (70-99); Osmolality,Calculated 281 (280-300); Potassium 3.5 mEq/L (3.5-4.5); Sodium 132 mEq/L (136-145); eGFR For African Americans > 60 (> 60); eGFR For Non-African Americans > 60 (> 60)
[2017-02-18] MEDS: Nicotine 14 MG PATCH.TD24 TD SCH (08:15)
[2017-02-18] MEDS: Furosemide 20 MG TABLET PO SCH (08:17)
[2017-02-18] MEDS: *HR* Glimepiride 2 MG TABLET PO SCH (08:17)
[2017-02-18] MEDS: ARIPiprazole 10 MG TABLET PO SCH (08:17)
[2017-02-18] MEDS: Gabapentin 400 MG CAPSULE PO SCH ×3 (08:17→21:40)
[2017-02-18] MEDS: Lisinopril 20 MG TABLET PO SCH (08:17)
--- NOTE | 2017-02-18 08:22 | Cardiothoracic Progress Note ---
Date of Encounter: 02/18/17 Time of Encounter: 08:20 - Assessment and plan (1) Empyema of left pleural space Current Visit: Yes Status: Acute The patient is breathing comfortably with supplemental oxygen. The chest x-ray shows persistent left lower lobe consolidation and a small left pleural effusion. A chest CT will be performed to better evaluate the residual effusion. If the patient has a significant amount of loculated fluid within the left pleural space, he will need a thoracotomy and decortication to help resolve the MRSA empyema. The assessment and plan as outlined above was discussed with the patient and/or family members who expressed understanding and agreement. All questions were answered. - Subjective Interval history: The patient is resting comfortably in his hospital bed. He has no respiratory complaints. Vital Signs, Last 4 Hours Resp Pulse Ox 02/18/17 04:26 16 99 Oxgyen Flow Rate Oxygen Flow Rate (LPM) 3 Clinical Data, last 8 Hours Output, Urine Amount 175 Output, Urine Amount 775 Weight 02/16/17 02/17/17 02/18/17 23:59 23:59 23:59 Weight 153.2 kg 153.4 kg 154.2 kg - Physical Examination General: Conversant, No Apparent Distress Neck: No JVD, Normal carotid pulses Cardiac: Reg Rate and Rhythm, Normal S1 and S2, No Murmur Incision: No signs of infection, Dry/intact dressing Chest tubes: Minimal drainage, Other (No air leak.) Lungs: Normal Breath Sounds, No Wheeze, Rales, Rhonchi Neuro: Alert and responsive, No focal deficits noted Vascular: Normal capillary refill Extremities: No Clubbing, No Cyanosis, No Edema - Labs 02/18/17 03:51 02/18/17 03:51 Lab Results, Last 24 hours 02/17/17 02/18/17 02/18/17 09:36 03:51 03:51 WBC 7.9 Hgb 11.7 L Hct 37.7 Plt Count 453 H Sodium 130 L 132 L Potassium 3.3 L 3.5 Chloride 86 L 88 L Carbon Dioxide 36 H 35 H BUN 7 L 10 Creatinine 0.73 0.72 Glucose 239 H 241 H Calcium 8.9 8.9 Total Bilirubin 0.3 AST 10 ALT 15 Alkaline Phosphatase 114 - Imaging Chest Xray: image reviewed (No pneumothorax. Left lower lobe consolidation. Small left pleural effusion.) Consult Discharge Plan - Plan Referrals: Alondra King, SURVEY SUPERVISOR [Primary Care Provider] -
[2017-02-18] MEDS ORDERED: Aminoglycoside Consult 1 EACH MC ONE (09:02)
--- NOTE | 2017-02-18 09:07 | Pulmonology Progress Note ---
Date of Encounter: 02/18/17 Time of Encounter: 08:55 Assessment and Plan (1) Empyema of left pleural space Current Visit: Yes Status: Acute This is suggestive of community-acquired MRSA ammonia and empyema. Discussed with Dr. Muller and primary team the patient will need a repeat CT chest and have further recommendation based on the result. Also to change antibiotics to Zyvox that might have a better penetration for treatment of his condition and that can be taken orally. Patient will need incentive spirometry and mobilization. (2) COPD (chronic obstructive pulmonary disease) Current Visit: Yes Status: Chronic Patient is on bronchodilators and he will need outpatient workup and follow-up. Qualifiers: COPD type: chronic bronchitis Chronic bronchitis type: unspecified Qualified Code(s): J42 - Unspecified chronic bronchitis (3) Suspected sleep apnea Current Visit: Yes Status: Suspected Patient will need outpatient work up. Subjective Principal diagnosis: Left pleural effusion Interval history: Patient continued to improve clinically and drainage from chest tube is less purulent. Objective PUL Vital signs: Last Vital Signs Temp 97.9 F 02/18/17 08:25 Pulse 87 02/18/17 08:25 Resp 18 02/18/17 08:25 BP 109/67 02/18/17 08:25 Pulse Ox 92 02/18/17 08:25 General appearance: no acute distress Eyes: nonicteric Mallampati (class): 4 Neck: supple Effort: normal Auscultation: left: diminished breath sounds (Chest tube in the left side), right: clear Percussion: left: dull, right: not dull Cardiovascular: regular rate and rhythm Gastrointestinal: normoactive bowel sounds Extremities: no cyanosis normal mental status, non-focal exam mood appropriate Results - Laboratory Findings CBC and BMP: 02/18/17 03:51 02/18/17 03:51 PT/INR, D-dimer PT 16.1 Seconds (9.4-12.1) H 02/15/17 14:06 Abnormal lab findings: Abnormal lab results Hgb 11.7 g/dL (12.9-16.9) L 02/18/17 03:51 MCH 27.6 pg (28.0-33.3) L 02/18/17 03:51 MCHC 31.0 g/dL (31.6-35.5) L 02/18/17 03:51 RDW 15.1 % (11.5-14.5) H 02/18/17 03:51 Plt Count 453 K/mcL (140-400) H 02/18/17 03:51 PT 16.1 Seconds (9.4-12.1) H 02/15/17 14:06 Sodium 132 mEq/L (136-145) L 02/18/17 03:51 Chloride 88 mEq/L (98-109) L 02/18/17 03:51 Carbon Dioxide 35 mEq/L (19-29) H 02/18/17 03:51 Glucose 241 mg/dL (70-99) H 02/18/17 03:51 POC Glucose 239 (58-89) H 02/17/17 19:45 Lactate Dehydrogenase 148 Units/L (159-327) L 02/17/17 09:36 Albumin 1.5 g/dL (3.5-5.0) L 02/17/17 09:36 Globulin 5.5 g/dL (2.4-3.5) H 02/17/17 09:36 Albumin/Globulin Ratio 0.3 (1.1-2.2) L 02/17/17 09:36 Pleural Appearance Cloudy (Clear) A 02/16/17 11:00 - Microbiology Findings Microbiology Findings: Microbiology, Last 48 Hours 02/16/17 11:00 Body Fluid Culture - Final Pleural Fluid Methicillin Resistant S.aureus 02/15/17 21:00 Sputum Culture - Final Sputum - Diagnostic Findings Chest x-ray: report reviewed, image reviewed - Clinical Findings Intake & Output: Intake & Output 02/17/17 02/18/17 02/18/17 23:59 07:59 15:59 Intake Total 600 / 600 120 / 120 Output Total 1350 / 1350 950 / 950 Balance -750 / -750 -830 / -830 Weight 154.2 kg Consult Discharge Plan - Plan Referrals: Alondra King, DUST BOX WORKER [Primary Care Provider] -
[2017-02-18] MEDS: Insulin DETEMIR 100 UNIT/ML X5UNITS SQ SCH ×2 (09:08→21:41)
[2017-02-18] MEDS: Insulin LISPRO 300 UNITS/3 ML VIAL SQ SCH ×4 (09:08→21:23)
--- NOTE | 2017-02-18 11:15 | Internal Med Progress Note ---
Date of Encounter: 02/18/17 Time of Encounter: 10:25 - Assessment and plan (1) Pneumonia Current Visit: Yes Status: Acute Assessment and plan: Discussed with pulmonology. Will transition patient to Zyvox, as it has better lung penetration. Patient is on venlafaxine so we will monitor him closely for serotonin syndrome. High risk for complications due to underlying empyema Qualifiers: Pneumonia type: due to methicillin-resistant Staphylococcus aureus (MRSA) Laterality: left Lung location: lower lobe of lung Qualified Code(s): J15.212 - Pneumonia due to Methicillin resistant Staphylococcus aureus (2) Empyema of left pleural space Current Visit: Yes Status: Acute Assessment and plan: Cardiothoracic surgery following. Chest x-ray done today shows partial clearing of the left lung opacity. There is residual consolidation in the left lower lobe. Will get CT scan to better evaluate this to see if the patient has a loculated effusion. If he does, he will need decortication. (3) COPD (chronic obstructive pulmonary disease) Current Visit: Yes Status: Chronic Qualifiers: COPD type: chronic bronchitis Chronic bronchitis type: unspecified Qualified Code(s): J42 - Unspecified chronic bronchitis (4) DM2 (diabetes mellitus, type 2) Current Visit: Yes Status: Chronic Assessment and plan: Blood sugars remain elevated. We will increase his long-acting insulin dosage. Qualifiers: Diabetes mellitus complication status: without complication Diabetes mellitus intermodal customer service insulin use: without intermodal customer service use Qualified Code(s): E11.9 - Type 2 diabetes mellitus without complications (5) Sepsis Current Visit: Yes Status: Resolved Assessment and plan: Sepsis improving. WBC count is normal now Qualifiers: Sepsis type: methicillin resistant Staphylococcus aureus Qualified Code(s) : A41.02 - Sepsis due to Methicillin resistant Staphylococcus aureus (6) Chronic congestive heart failure Current Visit: Yes Status: Chronic Assessment and plan: Continue oral Lasix. Qualifiers: Congestive heart failure type: diastolic Qualified Code(s): I50.32 - Chronic diastolic (congestive) heart failure - Subjective Interval history: Patient is lying in bed. Feels better. Denies any chest pain. Shortness of breath and cough are improving. No fever or chills reported overnight. - Constitutional Vitals: Temp Pulse Resp BP Pulse Ox 97.9 F 87 18 109/67 92 02/18/17 08:25 02/18/17 08:25 02/18/17 08:25 02/18/17 08:25 02/18/17 08:25 General appearance: Present: cooperative, A&O X 3, pleasant, answers questions appropriately - Respiratory Respiratory exam: Present: decreased breath sounds (Left base). Absent: accessory muscle use, rales, rhonchi, wheezes Additional comments: Chest tube in place and draining minimal amount purulent pleural fluid - Cardiovascular Cardiovascular exam: Present: RRR, +S1, +S2. Absent: diastolic murmur, gallop, rubs, systolic murmur - GI/Abdominal GI/Abdominal exam: Present: normal bowel sounds, soft, no peritoneal signs. Absent: distended, tenderness - Extremities Exam Extremities exam: Present: warm, radial pulses palpable and symmetrical. Absent : calf tenderness, cyanotic, pedal edema Internal Medicine: Result - Labs CBC & Chem 7: 02/18/17 03:51 02/18/17 03:51 Labs: Short CBC 02/18/17 Range/Units 03:51 WBC 7.9 (4.3-11.1) K/mcL Hgb 11.7 L (12.9-16.9) g/dL Hct 37.7 (37.5-50.1) % Plt Count 453 H (140-400) K/mcL Neutrophils # 6.0 (1.6-8.9) K/mcL BMP 02/18/17 03:51 Sodium 132 L Potassium 3.5 Chloride 88 L Carbon Dioxide 35 H BUN 10 Creatinine 0.72 Glucose 241 H Calcium 8.9 - ABG Interpretation ABG results: PT/INR, D-dimer PT 16.1 Seconds (9.4-12.1) H 02/15/17 14:06 - Impressions Impressions Chest X-Ray 02/18/17 06:00 IMPRESSION: Partial clearing of left lung opacities. Residual left lower lobe consolidation. D/ : / 02/18/2017 07:55:47 Deep Jo MD / nguyễnyer Interpreting Provider: Deep Jo MD Consult Discharge Plan - Plan Referrals: Alondra King, WAFER MOUNTER [Primary Care Provider] -
[2017-02-18] MEDS: Linezolid 600 MG TABLET PO SCH (21:41)
[2017-02-19] MEDS: Ibuprofen 400 MG TABLET PO PRN (00:56)
[2017-02-19] MEDS: Ipratropium/Albuterol Neb 3 ML IH SCH ×6 (03:44→23:41)
[2017-02-19] MEDS: *HR* Heparin 5,000 UNIT/ML VIAL SQ SCH ×2 (05:55→17:10)
[2017-02-19] MEDS: *HR* HYDROcodone/Acet 5/325 mg TABLET PO PRN ×3 (06:01→18:08)
--- NOTE | 2017-02-19 08:32 | Pulmonology Progress Note ---
Date of Encounter: 02/19/17 Time of Encounter: 08:30 Assessment and Plan (1) Empyema of left pleural space Current Visit: Yes Status: Acute Patient has the left sided chest tube it was draining till yesterday there is no much fluid in the pocket , spoke with no plan for decortication for now agrees the imaging and patient is feeling better . Will hold on to the chest tube for now will leave the decision to when to pull the chest tube out , To continue Zyvox (2) COPD (chronic obstructive pulmonary disease) Current Visit: Yes Status: Chronic To continue the current regimen of bronchodilators . Qualifiers: COPD type: chronic bronchitis Chronic bronchitis type: unspecified Qualified Code(s): J42 - Unspecified chronic bronchitis (3) Suspected sleep apnea Current Visit: Yes Status: Acute Will need outpatient work up Subjective Principal diagnosis: Left pleural effusion Interval history: Patient is doing well no constitutional symptoms , cough and sputum production is at baseline, denies any chest pain , repeat CT scan showed decreasing fluid in the loculated effusion which is the empyema collection . Objective PUL Vital signs: Last Vital Signs Temp 98.1 F 02/19/17 07:00 Pulse 79 02/19/17 07:00 Resp 18 02/19/17 07:53 BP 124/78 02/19/17 07:00 Pulse Ox 91 02/19/17 07:53 Auscultation: left: diminished breath sounds Results - Laboratory Findings CBC and BMP: 02/18/17 03:51 02/18/17 03:51 PT/INR, D-dimer PT 16.1 Seconds (9.4-12.1) H 02/15/17 14:06 Abnormal lab findings: Abnormal lab results Hgb 11.7 g/dL (12.9-16.9) L 02/18/17 03:51 MCH 27.6 pg (28.0-33.3) L 02/18/17 03:51 MCHC 31.0 g/dL (31.6-35.5) L 02/18/17 03:51 RDW 15.1 % (11.5-14.5) H 02/18/17 03:51 Plt Count 453 K/mcL (140-400) H 02/18/17 03:51 PT 16.1 Seconds (9.4-12.1) H 02/15/17 14:06 Sodium 132 mEq/L (136-145) L 02/18/17 03:51 Chloride 88 mEq/L (98-109) L 02/18/17 03:51 Carbon Dioxide 35 mEq/L (19-29) H 02/18/17 03:51 Glucose 241 mg/dL (70-99) H 02/18/17 03:51 POC Glucose 215 (58-89) H 02/18/17 11:20 Lactate Dehydrogenase 148 Units/L (159-327) L 02/17/17 09:36 Albumin 1.5 g/dL (3.5-5.0) L 02/17/17 09:36 Globulin 5.5 g/dL (2.4-3.5) H 02/17/17 09:36 Albumin/Globulin Ratio 0.3 (1.1-2.2) L 02/17/17 09:36 Pleural Appearance Cloudy (Clear) A 02/16/17 11:00 - Microbiology Findings Microbiology Findings: Microbiology, Last 48 Hours 02/16/17 11:00 Body Fluid Culture - Final Pleural Fluid Methicillin Resistant S.aureus 02/15/17 21:00 Sputum Culture - Final Sputum - Clinical Findings Intake & Output: Intake & Output 02/18/17 02/19/17 02/19/17 23:59 07:59 15:59 Intake Total 240 / 240 50 / 50 Output Total 1015 / 1015 750 / 750 Balance -775 / -775 -700 / -700 Weight 153 kg Consult Discharge Plan - Plan Referrals: Alondra King, CLINIQUE COUNTER MANAGER [Primary Care Provider] -
[2017-02-19] MEDS: Insulin DETEMIR 100 UNIT/ML X5UNITS SQ SCH ×2 (08:59→21:17)
[2017-02-19] MEDS: Linezolid 600 MG TABLET PO SCH ×2 (08:59→21:16)
[2017-02-19] MEDS: Furosemide 20 MG TABLET PO SCH (08:59)
[2017-02-19] MEDS: *HR* Glimepiride 2 MG TABLET PO SCH (08:59)
[2017-02-19] MEDS: Insulin LISPRO 300 UNITS/3 ML VIAL SQ SCH ×4 (08:59→21:17)
[2017-02-19] MEDS: Lisinopril 20 MG TABLET PO SCH (09:00)
[2017-02-19] MEDS: ARIPiprazole 10 MG TABLET PO SCH (09:00)
[2017-02-19] MEDS: Gabapentin 400 MG CAPSULE PO SCH ×3 (09:00→21:16)
[2017-02-19] MEDS: Nicotine 14 MG PATCH.TD24 TD SCH (09:02)
--- NOTE | 2017-02-19 14:46 | Cardiothoracic Progress Note ---
Date of Encounter: 02/19/17 Time of Encounter: 14:44 - Assessment and plan (1) Empyema of left pleural space Current Visit: Yes Status: Acute The assessment and plan as outlined above was discussed with the patient and/or family members who expressed understanding and agreement. All questions were answered. The patient is doing well. He is afebrile and his white blood cell count is normal. CT scan of the chest done yesterday is improved. Hopefully, we can get by with chest tube drainage and antibiotics and avoid a thoracotomy. - Subjective Interval history: The patient feels better and has no complaints. Vital Signs, Last 4 Hours Pulse Resp BP Pulse Ox 02/19/17 11:07 18 91 02/19/17 11:00 85 18 114/73 92 Oxgyen Flow Rate Oxygen Flow Rate (LPM) 2 Clinical Data, last 8 Hours Output, Chest Tube Drainage 0 Amount [Left Posterior Chest] Output, Urine Amount 650 Output, Urine Amount 900 Output, Urine Amount 375 Weight 02/17/17 02/18/17 02/19/17 23:59 23:59 23:59 Weight 153.4 kg 154.2 kg 153 kg Lungs are clear to percussion and auscultation. Heart is in a regular rate and rhythm. Chest tube drainage is minimal and there is no air leak. CT scan of the chest done yesterday is improved. - Labs 02/18/17 03:51 02/18/17 03:51 - VTE Documentation of Mechanical Device: Intermittent pneumatic compression device Consult Discharge Plan - Plan Referrals: Alondra King, GIRLS TENNIS COACH [Primary Care Provider] -
--- NOTE | 2017-02-19 15:35 | Internal Med Progress Note ---
Date of Encounter: 02/19/17 Time of Encounter: 10:40 - Assessment and plan (1) Pneumonia Current Visit: Yes Status: Acute Assessment and plan: Continue Zyvox.WBC count is normal. Clinically patient is improving. We will hold Lexapro for the duration of treatment with Zyvox due to increased risk of serotonin syndrome. Patient would likely need 7-21 days of treatment with Zyvox for his MRSA pneumonia with empyema. Qualifiers: Pneumonia type: due to methicillin-resistant Staphylococcus aureus (MRSA) Laterality: left Lung location: lower lobe of lung Qualified Code(s): J15.212 - Pneumonia due to Methicillin resistant Staphylococcus aureus (2) Empyema of left pleural space Current Visit: Yes Status: Acute Assessment and plan: Repeat CT scan of the chest shows decrease in size of effusion. Patient does have fluid in the left pleural fissure. Cardiothoracic surgery following. Recommend conservative management at this time. We will follow recommendations. Moderate risk for complications. (3) COPD (chronic obstructive pulmonary disease) Current Visit: Yes Status: Chronic Assessment and plan: Continue supportive care with bronchodilators as needed. Qualifiers: COPD type: chronic bronchitis Chronic bronchitis type: unspecified Qualified Code(s): J42 - Unspecified chronic bronchitis (4) DM2 (diabetes mellitus, type 2) Current Visit: Yes Status: Chronic Assessment and plan: Well-controlled after long-acting insulin dosage increased yesterday. Continue current insulin regimen Qualifiers: Diabetes mellitus complication status: without complication Diabetes mellitus chcf insulin use: without chcf use Qualified Code(s): E11.9 - Type 2 diabetes mellitus without complications (5) Sepsis Current Visit: Yes Status: Resolved Qualifiers: Sepsis type: methicillin resistant Staphylococcus aureus Qualified Code(s) : A41.02 - Sepsis due to Methicillin resistant Staphylococcus aureus (6) Chronic congestive heart failure Current Visit: Yes Status: Chronic Assessment and plan: Continue oral Lasix. Not in acute exacerbation at this time Qualifiers: Congestive heart failure type: diastolic Qualified Code(s): I50.32 - Chronic diastolic (congestive) heart failure (7) Morbid obesity with BMI of 40.0-44.9, adult Current Visit: Yes Status: Chronic - Subjective Interval history: 51-year-old male patient admitted here with left pleural effusion and pneumonia. Status post chest tube placement. Diagnosed with empyema due to MRSA. On oral Zyvox. Cardiothoracic surgery and pulmonology following. Patient is lying in bed. Feels comfortable. No pain or shortness of breath at this time. No fever or chills overnight. - Constitutional Vitals: Temp Pulse Resp BP Pulse Ox 98.1 F 85 18 114/73 91 02/19/17 07:00 02/19/17 11:00 02/19/17 11:07 02/19/17 11:00 02/19/17 11:07 General appearance: Present: cooperative, A&O X 3, morbidly obese, pleasant, answers questions appropriately - Neck Neck exam general surgery: Present: supple, trachea midline. Absent: lymphadenopathy - Respiratory Respiratory exam: Present: decreased breath sounds (left base). Absent: accessory muscle use, rales, rhonchi, wheezes - Cardiovascular Cardiovascular exam: Present: RRR, +S1, +S2. Absent: diastolic murmur, gallop, rubs, systolic murmur - GI/Abdominal GI/Abdominal exam: Present: normal bowel sounds, soft, no peritoneal signs. Absent: distended, tenderness - Extremities Exam Extremities exam: Present: warm, radial pulses palpable and symmetrical. Absent : calf tenderness, cyanotic, pedal edema Internal Medicine: Result - Labs CBC & Chem 7: 02/18/17 03:51 02/18/17 03:51 - ABG Interpretation ABG results: PT/INR, D-dimer PT 16.1 Seconds (9.4-12.1) H 02/15/17 14:06 - VTE Documentation of Mechanical Device: Intermittent pneumatic compression device Consult Discharge Plan - Plan Referrals: Alondra King, WATER RESTORATION TECHNICIAN [Primary Care Provider] -
[2017-02-20] MEDS: *HR* HYDROcodone/Acet 5/325 mg TABLET PO PRN ×6 (00:02→20:40)
[2017-02-20 03:44] LABS: Basophils % 0.3 %; Eosinophils # 0.2 K/mcL (0.0-0.6); Eosinophils % 2.2 %; Hematocrit 38.5 % (37.5-50.1); Hemoglobin 11.8 g/dL (12.9-16.9); Immature Granulocytes % 0.8 % (0-4); Lymphocytes # 1.3 K/mcL (0.6-4.6); Lymphocytes % 14.6 %; Mean Corpuscular HGB Conc 30.6 g/dL (31.6-35.5); Mean Corpuscular Hemoglobin 27.4 pg (28.0-33.3); Mean Corpuscular Volume 89.5 fL (83.0-100.0); Mean Platelet Volume 9.4 fL (9.4-12.4); Monocytes # 0.6 K/mcL (0.0-1.3); Monocytes % 6.4 %; Neutrophils # 6.6 K/mcL (1.6-8.9); Platelet Count 465 K/mcL (140-400); Red Cell Distribution Width 15.5 % (11.5-14.5); Segmented Neutrophils % 75.7 %
[2017-02-20 03:56] LABS: BUN/Creatinine Ratio 15 (6-26); Blood Urea Nitrogen 10 mg/dL (8-26); Calcium 8.9 mg/dL (8.6-10.8); Carbon Dioxide 35 mEq/L (19-29); Chloride 92 mEq/L (98-109); Glucose 140 mg/dL (70-99); Osmolality,Calculated 279 (280-300); Potassium 3.9 mEq/L (3.5-4.5); Sodium 134 mEq/L (136-145); eGFR For African Americans > 60 (> 60); eGFR For Non-African Americans > 60 (> 60)
[2017-02-20] MEDS: Ipratropium/Albuterol Neb 3 ML IH SCH ×6 (04:18→23:42)
[2017-02-20] MEDS: *HR* Heparin 5,000 UNIT/ML VIAL SQ SCH ×2 (06:12→16:21)
--- NOTE | 2017-02-20 07:36 | Cardiothoracic Progress Note ---
Date of Encounter: 02/20/17 Time of Encounter: 07:34 - Assessment and plan (1) Empyema of left pleural space Current Visit: Yes Status: Acute The patient is afebrile and his white blood cell count is normal. The chest tube was taken off suction. Hopefully, the chest tube and antibiotics are enough to resolve his pneumonia and empyema. He is aware that there is a small chance that he still may eventually require surgical therapy if things get worse , but he is opposed to surgery at this time. - Subjective Interval history: The patient has no complaints. Vital Signs, Last 4 Hours Temp Pulse Resp BP Pulse Ox 02/20/17 05:23 98 F 86 16 127/65 90 Oxgyen Flow Rate Oxygen Flow Rate (LPM) 4 Clinical Data, last 8 Hours Output, Chest Tube Drainage 0 Amount [Left Posterior Chest] Output, Chest Tube Drainage 0 Amount [Left Posterior Chest] Output, Urine Amount 0 Output, Urine Amount 250 Weight 02/18/17 02/19/17 02/20/17 23:59 23:59 23:59 Weight 154.2 kg 153 kg 154.5 kg Lungs are clear to percussion and auscultation. Heart is in a regular rate and rhythm. Chest tube drainage is minimal. There is no air leak. Chest x-ray is clear. - Labs 02/20/17 03:24 02/20/17 03:24 Lab Results, Last 24 hours 02/20/17 02/20/17 03:24 03:24 WBC 8.7 Hgb 11.8 L Hct 38.5 Plt Count 465 H Sodium 134 L Potassium 3.9 Chloride 92 L Carbon Dioxide 35 H BUN 10 Creatinine 0.67 L Glucose 140 H Calcium 8.9 - VTE Documentation of Mechanical Device: Intermittent pneumatic compression device Consult Discharge Plan - Plan Referrals: Alondra King, INDUSTRIAL MACHINE OPERATOR [Primary Care Provider] -
[2017-02-20] MEDS: Insulin LISPRO 300 UNITS/3 ML VIAL SQ SCH ×4 (08:08→20:41)
[2017-02-20] MEDS: Gabapentin 400 MG CAPSULE PO SCH ×3 (08:09→20:40)
[2017-02-20] MEDS: Linezolid 600 MG TABLET PO SCH ×2 (08:09→20:40)
[2017-02-20] MEDS: Lisinopril 20 MG TABLET PO SCH (08:09)
[2017-02-20] MEDS: ARIPiprazole 10 MG TABLET PO SCH (08:09)
[2017-02-20] MEDS: Furosemide 20 MG TABLET PO SCH (08:09)
[2017-02-20] MEDS: Nicotine 14 MG PATCH.TD24 TD SCH (08:09)
[2017-02-20] MEDS: Insulin DETEMIR 100 UNIT/ML X5UNITS SQ SCH ×2 (08:23→20:40)
--- NOTE | 2017-02-20 11:33 | Pulmonology Progress Note ---
Date of Encounter: 02/20/17 Time of Encounter: 10:00 Assessment and Plan (1) Empyema of left pleural space Current Visit: Yes Status: Acute Patient has the left sided chest tube it was draining till yesterday there is no much fluid in the pocket , spoke with no plan for decortication for now agrees the imaging and patient is feeling better .Today Chest tube is off suction .will leave the decision to when to pull the chest tube out , To continue Zyvox . (2) COPD (chronic obstructive pulmonary disease) Current Visit: Yes Status: Chronic To continue the current regimen of bronchodilators . Qualifiers: COPD type: chronic bronchitis Chronic bronchitis type: unspecified Qualified Code(s): J42 - Unspecified chronic bronchitis (3) Suspected sleep apnea Current Visit: Yes Status: Acute Will need outpatient work up Subjective Principal diagnosis: Left pleural effusion Interval history: Patient is doing well no constitutional symptoms , cough and sputum production is at baseline, denies any chest pain , Chest tube is off suction today. Objective PUL Vital signs: Last Vital Signs Temp 97.6 F 02/20/17 11:28 Pulse 81 02/20/17 11:28 Resp 14 02/20/17 11:28 BP 129/73 02/20/17 11:28 Pulse Ox 91 02/20/17 11:28 Auscultation: left: diminished breath sounds Results - Laboratory Findings CBC and BMP: 02/20/17 03:24 02/20/17 03:24 PT/INR, D-dimer PT 16.1 Seconds (9.4-12.1) H 02/15/17 14:06 Abnormal lab findings: Abnormal lab results Hgb 11.8 g/dL (12.9-16.9) L 02/20/17 03:24 MCH 27.4 pg (28.0-33.3) L 02/20/17 03:24 MCHC 30.6 g/dL (31.6-35.5) L 02/20/17 03:24 RDW 15.5 % (11.5-14.5) H 02/20/17 03:24 Plt Count 465 K/mcL (140-400) H 02/20/17 03:24 PT 16.1 Seconds (9.4-12.1) H 02/15/17 14:06 Sodium 134 mEq/L (136-145) L 02/20/17 03:24 Chloride 92 mEq/L (98-109) L 02/20/17 03:24 Carbon Dioxide 35 mEq/L (19-29) H 02/20/17 03:24 Creatinine 0.67 mg/dL (0.72-1.25) L 02/20/17 03:24 Glucose 140 mg/dL (70-99) H 02/20/17 03:24 POC Glucose 185 (58-89) H 02/19/17 19:11 Calculated Osmolality 279 (280-300) L 02/20/17 03:24 Lactate Dehydrogenase 148 Units/L (159-327) L 02/17/17 09:36 Albumin 1.5 g/dL (3.5-5.0) L 02/17/17 09:36 Globulin 5.5 g/dL (2.4-3.5) H 02/17/17 09:36 Albumin/Globulin Ratio 0.3 (1.1-2.2) L 02/17/17 09:36 Pleural Appearance Cloudy (Clear) A 02/16/17 11:00 - Microbiology Findings Microbiology Findings: Microbiology, Last 48 Hours 02/16/17 11:00 Body Fluid Culture - Final Pleural Fluid Methicillin Resistant S.aureus - Clinical Findings Intake & Output: Intake & Output 02/19/17 02/20/17 02/20/17 23:59 07:59 15:59 Intake Total 200 / 200 200 / 200 240 / 240 Output Total 400 / 400 250 / 250 800 / 800 Balance -200 / -200 -50 / -50 -560 / -560 Weight 154.5 kg - VTE Documentation of Mechanical Device: Intermittent pneumatic compression device Consult Discharge Plan - Plan Referrals: Alondra King, CLIENT SUPPORT ANALYST [Primary Care Provider] -
--- NOTE | 2017-02-20 18:10 | Internal Med Progress Note ---
Date of Encounter: 02/20/17 Time of Encounter: 11:00 - Assessment and plan (1) Empyema of left pleural space Current Visit: Yes Status: Acute Assessment and plan: Repeat CT scan of the chest shows decrease in size of effusion. Patient does have fluid in the left pleural fissure. Cardiothoracic surgery following with recommendations for continued chest tube but without suction. (2) Pneumonia Current Visit: Yes Status: Acute Assessment and plan: Continue Zyvox.WBC count is normal. Clinically patient is improving. We will hold Lexapro for the duration of treatment with Zyvox due to increased risk of serotonin syndrome. Patient would likely need 7-21 days of treatment with Zyvox for his MRSA pneumonia with empyema. Qualifiers: Pneumonia type: due to methicillin-resistant Staphylococcus aureus (MRSA) Laterality: left Lung location: lower lobe of lung Qualified Code(s): J15.212 - Pneumonia due to Methicillin resistant Staphylococcus aureus (3) DM2 (diabetes mellitus, type 2) Current Visit: Yes Status: Chronic Assessment and plan: Well-controlled after long-acting insulin. Continue current insulin regimen Qualifiers: Diabetes mellitus complication status: without complication Diabetes mellitus snf insulin use: without outside sales engineer use Qualified Code(s): E11.9 - Type 2 diabetes mellitus without complications (4) COPD (chronic obstructive pulmonary disease) Current Visit: Yes Status: Chronic Assessment and plan: Continue supportive care with bronchodilators as needed. Qualifiers: COPD type: chronic bronchitis Chronic bronchitis type: unspecified Qualified Code(s): J42 - Unspecified chronic bronchitis (5) Chronic congestive heart failure Current Visit: Yes Status: Chronic Assessment and plan: Stable; continue oral Lasix. Qualifiers: Congestive heart failure type: diastolic Qualified Code(s): I50.32 - Chronic diastolic (congestive) heart failure (6) Morbid obesity with BMI of 40.0-44.9, adult Current Visit: Yes Status: Chronic Assessment and plan: -Lifestyle modifications. - Subjective Interval history: Patient reports that breathing has improved Patient continues to have chest tube but now without suction - Constitutional Vitals: Temp Pulse Resp BP Pulse Ox 98.0 F 81 14 108/58 93 02/20/17 15:09 02/20/17 15:09 02/20/17 15:18 02/20/17 15:09 02/20/17 15:18 General appearance: Present: cooperative, A&O X 3, morbidly obese, pleasant, answers questions appropriately - Respiratory Respiratory exam: Present: CTAB. Absent: accessory muscle use, rales, rhonchi, wheezes - Cardiovascular Cardiovascular exam: Present: RRR, +S1, +S2. Absent: diastolic murmur, gallop, rubs, systolic murmur - GI/Abdominal GI/Abdominal exam: Present: normal bowel sounds, soft, no peritoneal signs. Absent: distended, tenderness Internal Medicine: Result - Labs CBC & Chem 7: 02/20/17 03:24 02/20/17 03:24 Labs: Short CBC 02/20/17 Range/Units 03:24 WBC 8.7 (4.3-11.1) K/mcL Hgb 11.8 L (12.9-16.9) g/dL Hct 38.5 (37.5-50.1) % Plt Count 465 H (140-400) K/mcL Neutrophils # 6.6 (1.6-8.9) K/mcL BMP 02/20/17 03:24 Sodium 134 L Potassium 3.9 Chloride 92 L Carbon Dioxide 35 H BUN 10 Creatinine 0.67 L Glucose 140 H Calcium 8.9 - ABG Interpretation ABG results: PT/INR, D-dimer PT 16.1 Seconds (9.4-12.1) H 02/15/17 14:06 - Impressions Impressions Chest X-Ray 02/20/17 00:01 IMPRESSION: 1. Left pleural catheter in stable position. No pneumothorax identified. 2. Diffuse airspace opacities, left greater than right. Left base consolidation with small effusion is also unchanged. D/ /20/2017 07:34:52 Bernadine Danielle MD / candy Interpreting Provider: Bernadine Danielle MD - VTE Documentation of Mechanical Device: Intermittent pneumatic compression device Consult Discharge Plan - Plan Referrals: Alondra King, GEORGES [Primary Care Provider] -
[2017-02-21] MEDS: *HR* HYDROcodone/Acet 5/325 mg TABLET PO PRN ×5 (00:43→21:39)
[2017-02-21] MEDS: Ipratropium/Albuterol Neb 3 ML IH SCH ×5 (04:05→21:32)
[2017-02-21] MEDS: *HR* Heparin 5,000 UNIT/ML VIAL SQ SCH ×2 (05:10→16:32)
[2017-02-21] MEDS: ARIPiprazole 10 MG TABLET PO SCH (08:06)
[2017-02-21] MEDS: Linezolid 600 MG TABLET PO SCH ×2 (08:06→21:32)
[2017-02-21] MEDS: Furosemide 20 MG TABLET PO SCH (08:07)
[2017-02-21] MEDS: Gabapentin 400 MG CAPSULE PO SCH ×3 (08:07→21:32)
[2017-02-21] MEDS: Nicotine 14 MG PATCH.TD24 TD SCH (08:07)
[2017-02-21] MEDS: Insulin LISPRO 300 UNITS/3 ML VIAL SQ SCH ×4 (08:07→21:31)
[2017-02-21] MEDS: Lisinopril 20 MG TABLET PO SCH (08:07)
[2017-02-21] MEDS: Insulin DETEMIR 100 UNIT/ML X5UNITS SQ SCH ×2 (08:12→21:32)
[2017-02-21 08:46] LABS: Basophils # 0.1 K/mcL (0.0-0.2); Basophils % 0.5 %; Eosinophils # 0.2 K/mcL (0.0-0.6); Eosinophils % 1.8 %; Hematocrit 38.4 % (37.5-50.1); Immature Granulocytes % 0.5 % (0-4); Lymphocytes # 1.4 K/mcL (0.6-4.6); Lymphocytes % 12.7 %; Mean Corpuscular HGB Conc 31.3 g/dL (31.6-35.5); Mean Corpuscular Hemoglobin 28.2 pg (28.0-33.3); Mean Corpuscular Volume 90.4 fL (83.0-100.0); Mean Platelet Volume 9.3 fL (9.4-12.4); Monocytes # 0.5 K/mcL (0.0-1.3); Monocytes % 4.7 %; Neutrophils # 8.8 K/mcL (1.6-8.9); Platelet Count 445 K/mcL (140-400); Red Blood Count 4.25 M/mcL (4.19-5.50); Red Cell Distribution Width 15.6 % (11.5-14.5); Segmented Neutrophils % 79.8 %
[2017-02-21 09:40] LABS: BUN/Creatinine Ratio 14 (6-26); Blood Urea Nitrogen 9 mg/dL (6-20); Calcium 8.5 mg/dL (8.6-10.3); Carbon Dioxide 33 mEq/L (23-29); Chloride 97 mEq/L (98-107); Glucose 135 mg/dL (70-105); Osmolality,Calculated 277 (280-300); Potassium 4.7 mEq/L (3.5-5.1); Sodium 133 mEq/L (136-145); eGFR For African Americans > 60 (> 60); eGFR For Non-African Americans > 60 (> 60)
--- NOTE | 2017-02-21 10:50 | Cardiothoracic Progress Note ---
Date of Encounter: 02/21/17 Time of Encounter: 10:48 - Assessment and plan (1) Empyema of left pleural space Current Visit: Yes Status: Acute I will plan to remove the chest tube tomorrow morning. He is markedly improved. There is still some small chance that he may require operative therapy, but the risk of this is decreasing. - Subjective Interval history: The patient feels much better and has no complaints. Vital Signs, Last 4 Hours Temp Pulse Resp BP Pulse Ox 02/21/17 08:07 16 136/89 92 02/21/17 07:45 97.6 F 81 16 136/89 93 Oxgyen Flow Rate Oxygen Flow Rate (LPM) 3 Clinical Data, last 8 Hours Output, Chest Tube Drainage 0 Amount [Left Posterior Chest] Output, Chest Tube Drainage 0 Amount [Left Posterior Chest] Output, Urine Amount 250 Output, Urine Amount 400 Output, Urine Amount 0 Weight 02/19/17 02/20/17 02/21/17 23:59 23:59 23:59 Weight 153 kg 154.6 kg 153.2 kg Lungs are clear to percussion and auscultation. Heart is in a regular rate and rhythm. Chest tube drainage is minimal and there is no air leak. Chest x-ray is stable. - Labs 02/21/17 08:37 02/21/17 08:37 Lab Results, Last 24 hours 02/21/17 02/21/17 08:37 08:37 WBC 11.0 Hgb 12.0 L Hct 38.4 Plt Count 445 H Sodium 133 L Potassium 4.7 Chloride 97 L Carbon Dioxide 33 H BUN 9 Creatinine 0.66 L Glucose 135 H Calcium 8.5 L - VTE Documentation of Mechanical Device: Intermittent pneumatic compression device Consult Discharge Plan - Plan Referrals: Alondra King, PROJ ENGINEER [Primary Care Provider] -
--- NOTE | 2017-02-21 11:40 | Pulmonology Progress Note ---
Date of Encounter: 02/21/17 Time of Encounter: 11:30 Assessment and Plan (1) Empyema of left pleural space Current Visit: Yes Status: Acute Patient has the left sided chest tube it was draining till yesterday there is no much fluid in the pocket , spoke with no plan for decortication for now agrees the imaging and patient is feeling better . Chest tube in place .will leave the decision to when to pull the chest tube out , To continue Zyvox for total of 3 weeks after the chest tube comes out . To check for platelet function after 2 weeks of therapy Will sign off call with questions . (2) COPD (chronic obstructive pulmonary disease) Current Visit: Yes Status: Chronic To continue the current regimen of bronchodilators . Qualifiers: COPD type: chronic bronchitis Chronic bronchitis type: unspecified Qualified Code(s): J42 - Unspecified chronic bronchitis (3) Suspected sleep apnea Current Visit: Yes Status: Acute Patient CPAP machine at home he is motivated to use it . Subjective Principal diagnosis: Left pleural effusion Interval history: Patient is doing well no constitutional symptoms , cough and sputum production is at baseline, denies any chest pain , Chest tube still in place Objective PUL Vital signs: Last Vital Signs Temp 97.8 F 02/21/17 11:25 Pulse 84 02/21/17 11:25 Resp 18 02/21/17 11:25 BP 105/66 02/21/17 11:25 Pulse Ox 93 02/21/17 11:25 Auscultation: left: diminished breath sounds Results - Laboratory Findings CBC and BMP: 02/21/17 08:37 02/21/17 08:37 PT/INR, D-dimer PT 16.1 Seconds (9.4-12.1) H 02/15/17 14:06 Abnormal lab findings: Abnormal lab results Hgb 12.0 g/dL (12.9-16.9) L 02/21/17 08:37 MCHC 31.3 g/dL (31.6-35.5) L 02/21/17 08:37 RDW 15.6 % (11.5-14.5) H 02/21/17 08:37 Plt Count 445 K/mcL (140-400) H 02/21/17 08:37 MPV 9.3 fL (9.4-12.4) L 02/21/17 08:37 PT 16.1 Seconds (9.4-12.1) H 02/15/17 14:06 Sodium 133 mEq/L (136-145) L 02/21/17 08:37 Chloride 97 mEq/L (98-107) L 02/21/17 08:37 Carbon Dioxide 33 mEq/L (23-29) H 02/21/17 08:37 Creatinine 0.66 mg/dL (0.70-1.30) L 02/21/17 08:37 Glucose 135 mg/dL (70-105) H 02/21/17 08:37 POC Glucose 213 (58-89) H 02/20/17 19:32 Calculated Osmolality 277 (280-300) L 02/21/17 08:37 Calcium 8.5 mg/dL (8.6-10.3) L 02/21/17 08:37 Lactate Dehydrogenase 148 Units/L (159-327) L 02/17/17 09:36 Albumin 1.5 g/dL (3.5-5.0) L 02/17/17 09:36 Globulin 5.5 g/dL (2.4-3.5) H 02/17/17 09:36 Albumin/Globulin Ratio 0.3 (1.1-2.2) L 02/17/17 09:36 Pleural Appearance Cloudy (Clear) A 02/16/17 11:00 - Clinical Findings Intake & Output: Intake & Output 02/20/17 02/21/17 02/21/17 23:59 07:59 15:59 Intake Total 1140 / 1140 800 / 800 360 / 360 Output Total 1225 / 1225 700 / 700 250 / 250 Balance -85 / -85 100 / 100 110 / 110 Weight 153.2 kg - VTE Documentation of Mechanical Device: Intermittent pneumatic compression device Consult Discharge Plan - Plan Referrals: Alondra King, TECH INTERN [Primary Care Provider] -
--- NOTE | 2017-02-21 18:26 | Internal Med Progress Note ---
Date of Encounter: 02/21/17 Time of Encounter: 11:00 - Assessment and plan (1) Empyema of left pleural space Current Visit: Yes Status: Acute Assessment and plan: Repeat CT scan of the chest shows decrease in size of effusion. Patient does have fluid in the left pleural fissure. Cardiothoracic surgery following with recommendations to pull the chest tube on 02/22/17 (2) Pneumonia Current Visit: Yes Status: Acute Assessment and plan: Continue Zyvox.WBC count is normal. Clinically patient is improving. We will hold Lexapro for the duration of treatment with Zyvox due to increased risk of serotonin syndrome. Pulmonology following with recommendations for a 21 treatment course with Zyvox for MRSA pneumonia with empyema. Qualifiers: Pneumonia type: due to methicillin-resistant Staphylococcus aureus (MRSA) Laterality: left Lung location: lower lobe of lung Qualified Code(s): J15.212 - Pneumonia due to Methicillin resistant Staphylococcus aureus (3) DM2 (diabetes mellitus, type 2) Current Visit: Yes Status: Chronic Assessment and plan: Well-controlled after long-acting insulin. Continue current insulin regimen Qualifiers: Diabetes mellitus complication status: without complication Diabetes mellitus intermission coordinator insulin use: without custodial use Qualified Code(s): E11.9 - Type 2 diabetes mellitus without complications (4) COPD (chronic obstructive pulmonary disease) Current Visit: Yes Status: Chronic Assessment and plan: Continue supportive care with bronchodilators as needed. Qualifiers: COPD type: chronic bronchitis Chronic bronchitis type: unspecified Qualified Code(s): J42 - Unspecified chronic bronchitis (5) Chronic congestive heart failure Current Visit: Yes Status: Chronic Assessment and plan: Stable; continue oral Lasix. Qualifiers: Congestive heart failure type: diastolic Qualified Code(s): I50.32 - Chronic diastolic (congestive) heart failure (6) Morbid obesity with BMI of 40.0-44.9, adult Current Visit: Yes Status: Chronic Assessment and plan: -Lifestyle modifications. - Subjective Interval history: Patient reports that breathing has improved Patient continues to have chest tube but now without suction Plans to pull the chest tube on 02/22/17 - Constitutional Vitals: Temp Pulse Resp BP Pulse Ox 98.6 F 78 16 125/71 92 02/21/17 15:46 02/21/17 15:46 02/21/17 15:51 02/21/17 15:51 02/21/17 15:51 General appearance: Present: cooperative, A&O X 3, morbidly obese, pleasant, answers questions appropriately - Respiratory Respiratory exam: Present: CTAB. Absent: accessory muscle use, rales, rhonchi, wheezes - Cardiovascular Cardiovascular exam: Present: RRR, +S1, +S2. Absent: diastolic murmur, gallop, rubs, systolic murmur Internal Medicine: Result - Labs CBC & Chem 7: 02/21/17 08:37 02/21/17 08:37 Labs: Short CBC 02/21/17 Range/Units 08:37 WBC 11.0 (4.3-11.1) K/mcL Hgb 12.0 L (12.9-16.9) g/dL Hct 38.4 (37.5-50.1) % Plt Count 445 H (140-400) K/mcL Neutrophils # 8.8 (1.6-8.9) K/mcL BMP 02/21/17 08:37 Sodium 133 L Potassium 4.7 Chloride 97 L Carbon Dioxide 33 H BUN 9 Creatinine 0.66 L Glucose 135 H Calcium 8.5 L - ABG Interpretation ABG results: PT/INR, D-dimer PT 16.1 Seconds (9.4-12.1) H 02/15/17 14:06 - Impressions Impressions Chest X-Ray 02/21/17 00:01 IMPRESSION: Stable positioning of left-sided chest tube. Grossly stable appearing left basilar opacity, likely a combination of pleural effusion and atelectasis. D/ / Car Eastman MD / Car Eastman MD Interpreting Provider: Car Eastman MD - VTE Documentation of Mechanical Device: Intermittent pneumatic compression device Consult Discharge Plan - Plan Referrals: Alondra King CNP [Primary Care Provider] -
[2017-02-22] MEDS: Ipratropium/Albuterol Neb 3 ML IH SCH ×7 (00:33→23:06)
[2017-02-22] MEDS: *HR* HYDROcodone/Acet 5/325 mg TABLET PO PRN ×5 (04:08→20:10)
[2017-02-22] MEDS: *HR* Heparin 5,000 UNIT/ML VIAL SQ SCH ×2 (05:44→16:44)
[2017-02-22] MEDS: Insulin LISPRO 300 UNITS/3 ML VIAL SQ SCH ×4 (07:43→20:11)
[2017-02-22] MEDS: Gabapentin 400 MG CAPSULE PO SCH ×3 (07:44→20:11)
[2017-02-22] MEDS: ARIPiprazole 10 MG TABLET PO SCH (07:44)
[2017-02-22] MEDS: Lisinopril 20 MG TABLET PO SCH (07:44)
[2017-02-22] MEDS: Linezolid 600 MG TABLET PO SCH ×2 (07:44→20:11)
[2017-02-22] MEDS: Furosemide 20 MG TABLET PO SCH (07:45)
[2017-02-22] MEDS: Nicotine 14 MG PATCH.TD24 TD SCH (07:45)
--- NOTE | 2017-02-22 09:37 | Cardiothoracic Progress Note ---
Date of Encounter: 02/22/17 Time of Encounter: 09:35 - Assessment and plan (1) Empyema of left pleural space Current Visit: Yes Status: Acute I will check a stat portable chest x-ray. The patient is okay for discharge from my standpoint, when okay with the primary service. He is aware that there is a small chance that this might get worse and require operative therapy at some point. He will need several weeks of antibiotics. - Subjective Interval history: The patient has no complaints and feels good. Vital Signs, Last 4 Hours Temp Pulse Resp BP Pulse Ox 02/22/17 08:30 18 93 02/22/17 07:59 92 02/22/17 07:08 98 F 74 18 116/69 94 Oxgyen Flow Rate Oxygen Flow Rate (LPM) 4 Clinical Data, last 8 Hours Output, Urine Amount 350 Output, Urine Amount 600 Weight 02/20/17 02/21/17 02/22/17 23:59 23:59 23:59 Weight 154.6 kg 153.2 kg 153.3 kg Lungs are clear to percussion and auscultation. Heart is in a regular rate and rhythm. Chest tube drainage is minimal and there is no air leak. The chest tube was removed. - Labs 02/21/17 08:37 02/21/17 08:37 Lab Results, Last 24 hours 02/21/17 08:37 Sodium 133 L Potassium 4.7 Chloride 97 L Carbon Dioxide 33 H BUN 9 Creatinine 0.66 L Glucose 135 H Calcium 8.5 L - VTE Documentation of Mechanical Device: Intermittent pneumatic compression device Consult Discharge Plan - Plan Referrals: Alondra King, PHYSICAL THERAPY AIDE [Primary Care Provider] -
[2017-02-22] MEDS: Insulin DETEMIR 100 UNIT/ML X5UNITS SQ SCH ×2 (12:21→20:15)
--- NOTE | 2017-02-22 17:46 | Internal Med Progress Note ---
Date of Encounter: 02/22/17 Time of Encounter: 11:00 - Assessment and plan (1) Empyema of left pleural space Current Visit: Yes Status: Acute Assessment and plan: Repeat CT scan of the chest shows decrease in size of effusion. Patient does have fluid in the left pleural fissure. Cardiothoracic surgery following with recommendations to pull the chest tube on 02/22/17 (2) Pneumonia Current Visit: Yes Status: Acute Assessment and plan: -Patient still requiring high amounts of oxygen supplementation -Pulmonology following an appreciate any recommendations. -Will hold Lexapro for the duration of treatment with Zyvox due to increased risk of serotonin syndrome. -Will continue a 21 day course of Zyvox for MRSA pneumonia with empyema. Qualifiers: Pneumonia type: due to methicillin-resistant Staphylococcus aureus (MRSA) Laterality: left Lung location: lower lobe of lung Qualified Code(s): J15.212 - Pneumonia due to Methicillin resistant Staphylococcus aureus (3) DM2 (diabetes mellitus, type 2) Current Visit: Yes Status: Chronic Assessment and plan: Well-controlled after long-acting insulin. Continue current insulin regimen Qualifiers: Diabetes mellitus complication status: without complication Diabetes mellitus manager intermediate insulin use: without manager intermediate use Qualified Code(s): E11.9 - Type 2 diabetes mellitus without complications (4) COPD (chronic obstructive pulmonary disease) Current Visit: Yes Status: Chronic Assessment and plan: Continue supportive care with bronchodilators as needed. Qualifiers: COPD type: chronic bronchitis Chronic bronchitis type: unspecified Qualified Code(s): J42 - Unspecified chronic bronchitis (5) Chronic congestive heart failure Current Visit: Yes Status: Chronic Assessment and plan: Stable; continue oral Lasix. Qualifiers: Congestive heart failure type: diastolic Qualified Code(s): I50.32 - Chronic diastolic (congestive) heart failure (6) Morbid obesity with BMI of 40.0-44.9, adult Current Visit: Yes Status: Chronic Assessment and plan: -Lifestyle modifications. - Subjective Interval history: Patient reports that breathing has improved after chest tube was removed earlier today. Patient still requiring high amounts of oxygen supplementation however (acute hypoxic respiratory failure failure). - Constitutional Vitals: Temp Pulse Resp BP Pulse Ox 98.3 F 76 18 117/70 95 02/22/17 16:42 02/22/17 16:42 02/22/17 16:42 02/22/17 16:42 02/22/17 16:42 General appearance: Present: cooperative, A&O X 3, morbidly obese, pleasant, answers questions appropriately - Respiratory Respiratory exam: Present: wheezes. Absent: accessory muscle use, CTAB ( Expiratory wheezes), rales, rhonchi - Cardiovascular Cardiovascular exam: Present: RRR, +S1, +S2. Absent: diastolic murmur, gallop, rubs, systolic murmur Internal Medicine: Result - Labs CBC & Chem 7: 02/21/17 08:37 02/21/17 08:37 - ABG Interpretation ABG results: PT/INR, D-dimer PT 16.1 Seconds (9.4-12.1) H 02/15/17 14:06 - Impressions Impressions Chest X-Ray 02/22/17 09:37 IMPRESSION: 1. No pneumothorax following removal of the left chest tube. 2. Stable small left pleural effusion with overlying atelectasis/infiltrate. D/ / Deep Sagastume MD / Deep Sagastume MD Interpreting Provider: Deep Sagastume MD - VTE Documentation of Mechanical Device: Intermittent pneumatic compression device Consult Discharge Plan - Plan Referrals: Alondra King CALL OR CONTACT CENTRE MANAGER [Primary Care Provider] - 03/02/17 10:00 am
[2017-02-23] MEDS: *HR* HYDROcodone/Acet 5/325 mg TABLET PO PRN ×3 (03:19→14:02)
[2017-02-23] MEDS: Ipratropium/Albuterol Neb 3 ML IH SCH ×4 (03:32→15:52)
[2017-02-23] MEDS: *HR* Heparin 5,000 UNIT/ML VIAL SQ SCH ×2 (06:54→15:44)
[2017-02-23] MEDS: ARIPiprazole 10 MG TABLET PO SCH (07:52)
[2017-02-23] MEDS: Furosemide 20 MG TABLET PO SCH (07:52)
[2017-02-23] MEDS: Gabapentin 400 MG CAPSULE PO SCH ×2 (07:52→15:44)
[2017-02-23] MEDS: Linezolid 600 MG TABLET PO SCH (07:52)
[2017-02-23] MEDS: Lisinopril 20 MG TABLET PO SCH (07:53)
[2017-02-23] MEDS: Nicotine 14 MG PATCH.TD24 TD SCH (07:53)
[2017-02-23] MEDS: Insulin LISPRO 300 UNITS/3 ML VIAL SQ SCH ×3 (08:01→15:44)
[2017-02-23] MEDS: Insulin DETEMIR 100 UNIT/ML X5UNITS SQ SCH (09:09)
[2017-02-23 09:30] LABS: Basophils % 0.5 %; Eosinophils # 0.2 K/mcL (0.0-0.6); Eosinophils % 2.6 %; Hematocrit 38.6 % (37.5-50.1); Hemoglobin 11.7 g/dL (12.9-16.9); Immature Granulocytes % 0.6 % (0-4); Lymphocytes # 1.3 K/mcL (0.6-4.6); Lymphocytes % 14.4 %; Mean Corpuscular HGB Conc 30.3 g/dL (31.6-35.5); Mean Corpuscular Hemoglobin 27.5 pg (28.0-33.3); Mean Corpuscular Volume 90.6 fL (83.0-100.0); Mean Platelet Volume 9.6 fL (9.4-12.4); Monocytes # 0.5 K/mcL (0.0-1.3); Monocytes % 5.6 %; Neutrophils # 6.7 K/mcL (1.6-8.9); Platelet Count 525 K/mcL (140-400); Red Blood Count 4.26 M/mcL (4.19-5.50); Red Cell Distribution Width 15.6 % (11.5-14.5); Segmented Neutrophils % 76.3 %
[2017-02-23 09:42] LABS: BUN/Creatinine Ratio 13 (6-26); Blood Urea Nitrogen 9 mg/dL (6-20); Calcium 8.9 mg/dL (8.6-10.3); Carbon Dioxide 31 mEq/L (23-29); Chloride 98 mEq/L (98-107); Glucose 165 mg/dL (70-105); Osmolality,Calculated 280 (280-300); Potassium 4.6 mEq/L (3.5-5.1); Sodium 134 mEq/L (136-145); eGFR For African Americans > 60 (> 60); eGFR For Non-African Americans > 60 (> 60)
--- NOTE | 2017-02-23 14:57 | Discharge Summary ---
Date of Encounter: 02/23/17 Time of Encounter: 10:00 - Discharge Diagnosis (1) Empyema of left pleural space Priority: Primary Status: Acute (2) Pneumonia Priority: Primary Status: Acute Qualifiers: Pneumonia type: due to methicillin-resistant Staphylococcus aureus (MRSA) Laterality: left Lung location: lower lobe of lung Qualified Code(s): J15.212 - Pneumonia due to Methicillin resistant Staphylococcus aureus (3) DM2 (diabetes mellitus, type 2) Priority: Secondary Status: Chronic Qualifiers: Diabetes mellitus complication status: without complication Diabetes mellitus ice scraper insulin use: without retirement use Qualified Code(s): E11.9 - Type 2 diabetes mellitus without complications (4) COPD (chronic obstructive pulmonary disease) Priority: Secondary Status: Chronic Qualifiers: COPD type: chronic bronchitis Chronic bronchitis type: unspecified Qualified Code(s): J42 - Unspecified chronic bronchitis (5) Chronic congestive heart failure Priority: Secondary Status: Chronic Qualifiers: Congestive heart failure type: diastolic Qualified Code(s): I50.32 - Chronic diastolic (congestive) heart failure (6) Morbid obesity with BMI of 40.0-44.9, adult Priority: Secondary Status: Chronic - Discharge Medications Prescriptions: Linezolid [Zyvox] 600 mg PO BID 15 Days #15 tablet Home Medications: Albuterol Sulfate [Ventolin Hfa] 18 gm IH Q4HR PRN 12/25/16 [History] Aripiprazole [Abilify] 10 mg PO DAILY 12/25/16 [History] Celecoxib [Celebrex] 200 mg PO BID 12/25/16 [History] Escitalopram [Lexapro] 20 mg PO DAILY 12/25/16 [History] Furosemide [Lasix] 20 mg PO DAILY 12/25/16 [History] Gabapentin [Neurontin] 800 mg PO TID 12/25/16 [History] Glimepiride [Amaryl] 2 mg PO DAILY 12/25/16 [History] Lisinopril [Zestril] 20 mg PO DAILY 12/25/16 [History] Potassium Chloride [Klor-Con 10] 10 meq PO BID 12/25/16 [History] metFORMIN [Glucophage] 500 mg PO BIDWM 12/25/16 [History] Linezolid [Zyvox] 600 mg PO BID 15 Days #15 tablet 02/23/17 [Rx] Allergies/Adverse Reactions: 3 Allergy/AdvReac Type Severity Reaction Status Date / Time No Known Allergies Allergy Verified 02/15/17 03:53 Date of admission: 02/16/17 11:19 Primary care physician: Alondra King CNP Consults: 02/15/17 12:10 Consult to Pulmonology [CONS] Routine Consulting Provider: Pulm Crit Care & Sleep Anai Reason for Consult: large left pleural effusion Call Completed: Yes 02/15/17 14:06 Consult to Industrial Engineering Technician [CONS] Routine Reason for SW Consult: For mental health resources; Dona aware 02/16/17 07:57 Consult to Interventional Radiology [CONS] Routine Consulting Provider: Radiology Interventional Cols Reason for Consult: Left loculated pleural effusion. Appreciate thoracentesis. Please also send pleural fluid for ordered further studies. Call Completed: Yes 02/17/17 09:51 Consult to Cardiothoracic Surgery [CONS] Routine Consulting Provider: Cardiothoracic Surgery Anai Reason for Consult: empyema Call Completed: Yes - Patient Status Disposition: Home, Self-Care - Discharge Instructions Follow Up With: Alondra King CNP [Primary Care Provider] - 03/02/17 10:00 am - Diet and Activity Activity: wear oxygen at all times (2 liters) Hospital course: Patient is a 51-year-old male with past medical history significant for DM2, chronic COPD, tobacco abuse who presents to [facility] on 02/16/17 as a transfer from [place] [facility] due to shortness of breath. He reported a 2 day history of shortness of breath prior to presentation in addition to dyspnea with exertion so he decided to go to [facility] for evaluation and was found to have large left-sided pleural effusion on chest x- ray. Patient was then transferred to [facility] for further medical management and evaluation. During patients hospital stay, IR was consulted and left chest tube placement resulted in 1200 mL of purulent fluid. Cardiothoracic surgery was following with recommendations to continue chest tube placement for several days and then was pulled. In addition, patient was also treated for sepsis secondary to pneumonia with IV ceftriaxone and azithromycin until culture sensitivities were known which were positive for MRSA; antibiotics changed to Zyvox. Pulmonology was also following with recommendations for a 15 day course of Zyvox. Patient will be discharged to complete antibiotic as directed in addition to continuous home oxygen and follow up pulmonology as an outpatient. - Time Spent with Patient Total time spent providing and/or coordinating discharge services: Less than 30 minutes - Constitutional Vitals: Temp Pulse Resp BP Pulse Ox 98.4 F 76 14 126/71 98 02/23/17 11:53 02/23/17 11:53 02/23/17 11:53 02/23/17 11:53 02/23/17 11:53 General appearance: Present: cooperative, A&O X 3, morbidly obese, pleasant, answers questions appropriately - Respiratory Respiratory exam: Present: CTAB. Absent: accessory muscle use, rales, rhonchi, wheezes - Cardiovascular Cardiovascular exam: Present: RRR, +S1, +S2. Absent: diastolic murmur, gallop, rubs, systolic murmur - VTE Documentation of Mechanical Device: Intermittent pneumatic compression device
[2017-02-23 15:24] VITALS: BP 122/60
== END 2017-02-23 16:42 | disposition home or self-care (01) | DRG 720 ==
LOC: 2NENU → SUATTDRO 02-16 11:19
PROVIDERS: ADMIT Internal Medicine Hematology & Oncology; ATTEND Hospitalist